=== PATIENT | male | born 1950 | race African-American/Black ===

== ENCOUNTER 2019-12-19 20:49 | Observation (INO) ==
[2019-12-19] MEDS ORDERED: NITROGLYCERIN 2% OINTMENT 30GM TUBE EXT STA (21:10)
[2019-12-19] MEDS ORDERED: ASPIRIN CHEW 324 MG PO STA (21:10)
--- NOTE | 2019-12-19 21:15 | Emergency Department Note ---
History of Present Illness General Chief complaint: Chest Pain Stated complaint: PAIN IN CHEST Time Seen by Provider: 12/19/19 21:01 Source: patient History of Present Illness Provider complaint: Chest pain Onset (ago): hour(s) Location: chest and right Radiation: non-radiation Severity: moderate Pain Consistency: + intermittent and + now resolved Quality: + sharp Exacerbated By: + none Associated symptoms: no cough, no diaphoresis, no fever/chills, no nausea/vomiting and no shortness of breath This is a 69-year-old male who presents with chest pain intermittently since this morning. He describes it as a sharp pain. It lasts about 1 second and is located in the right side of his chest. It is now gone. No modifying factors. No associated shortness of breath, diaphoresis, chest pressure or tightness or heaviness. He states that he was on a very long arduous bike ride yesterday at 6 PM but he did not have any chest pain at that time. He does state that he had similar chest pain years ago and had a unremarkable stress test at that time. He denies any fever, cough, abdominal pain, vomiting, diarrhea, leg swelling or pain or family history of CAD. He denies any known COVID-19 exposure. Home Medications Home Medications Medication Instructions Recorded Confirmed Type amlodipine 5 mg tablet 5 mg PO DAILY #90 tab 11/17/18 12/19/19 Rx aspirin 81 mg tablet,delayed 81 mg PO DAILY 11/17/18 12/19/19 History release hydrochlorothiazide 25 mg tablet 25 mg PO DAILY #90 tab 11/17/18 12/19/19 Rx atorvastatin 20 mg tablet 20 mg PO DAILY #30 tab 11/10/19 12/19/19 Rx sildenafil 100 mg PO DAILY PRN 12/19/19 12/19/19 History zolpidem 5 - 10 mg PO HS PRN 12/19/19 12/19/19 History Allergies Allergy/AdvReac Type Severity Reaction Status Date / Time No Known Allergies Allergy Verified 12/19/19 21:36 Past Med/Surg History Medical History Dyslipidemia Encounter for prostate cancer screening HTN (hypertension) Surgical History History of wisdom tooth extraction Family History Mother Myocardial infarction Coronary heart disease Social History Smoking Status: Never smoker Hx Alcohol Use: Yes Preferred Language: Bulgarian Hearing Ability: Hard of Hearing marital status: current occupational status: employed Feels Safe at Home: Yes Review of Systems See HPI for pertinent positives & negatives. and A total of 10 systems reviewed and were otherwise negative Physical Exam Vital Signs Vital Signs - 24 hr 12/19/19 20:56 12/19/19 21:04 12/19/19 21:30 Temperature 36.9 C Temperature Source Oral Pulse Rate 77 75 Pulse Rate [Apical] 81 Pulse Rate from SpO2 Sensor 73 Respiratory Rate 18 25 H 24 Respiratory Effort / Characteristics Non-Labored Spontaneous Non-Labored Spontaneous Respiratory Depth Normal Normal Respiratory Pattern Regular Blood Pressure 178/99 H 178/104 H Blood Pressure [Left Arm] 214/93 H Blood Pressure Mean 125 131 Blood Pressure Mean [Left Arm] 133 Pulse Oximetry 97 98 98 Oxygen Delivery Method Room Air Room Air Room Air Sepsis Recent Fever Within 48 Hours No Sepsis New/Unexplained Change in Mental Status N/A Sepsis Action Taken by Nursing No Action Required 12/19/19 22:00 12/19/19 22:30 12/19/19 23:00 Temperature Temperature Source Pulse Rate 84 87 77 Pulse Rate [Apical] Pulse Rate from SpO2 Sensor 78 84 77 Respiratory Rate 24 20 15 Respiratory Effort / Characteristics Respiratory Depth Respiratory Pattern Blood Pressure 175/102 H 178/96 H 181/105 H Blood Pressure [Left Arm] Blood Pressure Mean 116 124 128 Blood Pressure Mean [Left Arm] Pulse Oximetry 97 99 98 Oxygen Delivery Method Room Air Room Air Room Air Sepsis Recent Fever Within 48 Hours Sepsis New/Unexplained Change in Mental Status Sepsis Action Taken by Nursing 12/19/19 23:30 12/19/19 23:58 Temperature Temperature Source Pulse Rate 72 78 Pulse Rate [Apical] Pulse Rate from SpO2 Sensor 62 Respiratory Rate 29 H 18 Respiratory Effort / Characteristics Respiratory Depth Respiratory Pattern Blood Pressure 179/95 H 179/95 H Blood Pressure [Left Arm] Blood Pressure Mean 137 Blood Pressure Mean [Left Arm] Pulse Oximetry 98 95 Oxygen Delivery Method Room Air Sepsis Recent Fever Within 48 Hours Sepsis New/Unexplained Change in Mental Status Sepsis Action Taken by Nursing Constitutional: Vital signs reviewed. Eyes: Pupils are equal round reactive to light. Conjunctiva are noninjected. ENT: Pharynx is clear without erythema or exudate. Mucous membranes are moist. Neck supple without meningeal signs. Respiratory: Clear to auscultation bilaterally. Breath sounds are equal bilaterally. Cardiovascular: Regular rate and rhythm. No rubs or gallops. GI: Soft, nondistended and nontender. Bowel sounds are present. Musculoskeletal: No peripheral edema. No lower extremity tenderness. Integumentary: No cyanosis. or jaundice. Neurological: The patient is awake and alert. No focal deficits. Psychiatric: Normal affect. Not anxious appearing. Course Administered Medications Heparin Sodium/Dextrose (Heparin Sodium/Dextrose) 25,000 units in 500 mls @ 30 mls/hr IV .[id number] [facility]; Protocol Stop: 01/18/20 22:59 Last Admin: 12/19/19 23:00 Dose: 1,500 units/hr, 30 mls/hr Documented by: [id number] Cosigned by: [id number] Discontinued Medications Aspirin (Aspirin Chew 324 Mg) 324 mg PO NOW STA Stop: 12/19/19 21:11 Last Admin: 12/19/19 21:15 Dose: 324 mg Documented by: [id number] Heparin Sodium (Porcine) (Heparin Sod (Porcine) 1000 Unit/Ml 10 Ml Vial) Confirm Administered Dose 10,000 units .ROUTE .K-MED ONE Stop: 12/19/19 22:43 Last Admin: 12/19/19 22:56 Dose: Not Given Documented by: [id number] Heparin Sodium/Dextrose (Heparin Iv Low Dose With Bolus) 1 ea IV NOW STA; Protocol Stop: 12/19/19 22:28 Last Admin: 12/19/19 22:56 Dose: Not Given Documented by: [id number] Heparin Sodium/Dextrose (Heparin Sodium/Dextrose) 25,000 units in 500 mls @ 0.02 mls/hr IV .Q24H [facility]; Protocol Stop: 01/18/20 22:29 Last Admin: 12/19/19 22:56 Dose: Not Given Documented by: [id number] Potassium Chloride (K Ever / Wtr) 10 meq in 100 mls @ 100 mls/hr IV ONE ONE Stop: 12/19/19 23:26 Last Admin: 12/19/19 23:01 Dose: 100 mls/hr Documented by: [id number] Nitroglycerin (Nitroglycerin 2% Ointment 30gm Tube) 1 inch EXT NOW STA Stop: 12/19/19 21:11 Last Admin: 12/19/19 21:17 Dose: 1 inch Documented by: [id number] Potassium Chloride (Potassium Chloride 10 Meq Tabcr) 40 meq PO NOW STA Stop: 12/19/19 22:28 Last Admin: 12/19/19 23:04 Dose: 40 meq Documented by: [id number] Critical Care Time Critical Care Time: Yes Total Critical Care Time: 35 I have personally spent approximately 35 minutes of critical care time in the direct management of this patient. This includes bedside care, interpretation of diagnostic studies, and testing, discussion with consultants, patient, and family members, and other required patient management activities. These minutes are in excess of all separately billable procedures. Medical Decision Making Differential Diagnosis Unstable angina, pleurisy, OK, pericarditis, GERD Medical Records Attestation: I reviewed the patient's medical records. I did perform a limited focused review of portions of the patient's old chart on the electronic medical record. 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 José earlier this months or LVH, hypertension and diastolic dysfunction. Home Medications Current Medication List: was personally reviewed by me Laboratory Data Attestation: I reviewed the patient's lab results. Result diagrams: 12/19/19 21:10 12/19/19 21:10 Lab Results 12/19/19 12/19/19 12/19/19 Range/Units 21:10 21:10 21:10 WBC 7.69 (4.8-10.8) K/uL RBC 5.31 (4.7-6.1) M/uL Hgb 15.4 (14.0-18.0) g/dL Hct 44.8 (42-52) % MCV 84.4 (80-100) fL MCH 29.0 (25-34) pg MCHC 34.4 (32-36) g/dL RDW Std Deviation 42.1 (36.4-46.3) fL RDW Coeff of Azam 13.6 (11.5-14.5) % Plt Count 183 (130-400) K/uL MPV 12.2 H (7.4-10.4) fL Neutrophils % (Manual) 27.6 % Lymphocytes % (Manual) 36.2 % Monocytes % (Manual) 11.2 % Neutrophils # (Manual) 2.12 (1.4-6.5) K/uL Total Absolute Neuts 2.12 (1.4-6.5) K/uL Lymphocytes # (Manual) 2.78 (1.2-3.4) K/uL Total Abs Lymphocytes 4.71 H (1.2-3.4) K/uL Monocytes # (Manual) 0.86 H (0.11-0.59) K/uL Large Granular Lymphs 25.0 % # Lrg Granular Lymphs 1.92 K/uL Toxic Vacuolation 1+ Poikilocytosis Present PT 11.3 (9.0-12.0) Seconds INR 1.1 (0.9-1.1) APTT 24.7 (21.0-31.0) Seconds PTT Ratio 0.9 Sodium 138 (136-145) mmol/L Potassium 2.7 L (3.5-5.1) mmol/L Chloride 104 (98-107) mmol/L Carbon Dioxide 28 (21-32) mmol/L Anion Gap 7.0 (3-11) BUN 18 (7-18) mg/dl Creatinine 1.26 (0.6-1.4) mg/dl Est Cr Clr Drug Dosing 65.0 ml/min Est GFR ( Amer) 67.5 Est GFR (Non-Af Amer) 58.2 BUN/Creatinine Ratio 14.2 (10-20) Glucose 127 H (70-99) mg/dl Calcium 9.9 (8.5-10.1) mg/dl Magnesium (1.8-2.4) mg/dl Total Bilirubin 1.2 H (0.2-1) mg/dl AST 42 H (15-37) U/L ALT 70 (12-78) U/L Alkaline Phosphatase 68 (45-117) U/L Total Creatine Kinase 390 H (39-308) U/L CK-MB (CK-2) 3.5 (0.5-3.6) ng/ml CK/CKMB % Calc 0.9 (0-3.0) Troponin I 0.270 H* (0-0.045) ng/ml Total Protein 9.0 H (6.4-8.2) gm/dl Albumin 4.1 (3.4-5.0) gm/dl Globulin 4.9 H (2.5-4.0) gm/dl Albumin/Globulin Ratio 0.8 L (0.9-2) Lyme Disease IgG Ab (Negative) Lyme Disease IgM Ab (Negative) 12/19/19 12/19/19 Range/Units 21:10 21:10 WBC (4.8-10.8) K/uL RBC (4.7-6.1) M/uL Hgb (14.0-18.0) g/dL Hct (42-52) % MCV (80-100) fL MCH (25-34) pg MCHC (32-36) g/dL RDW Std Deviation (36.4-46.3) fL RDW Coeff of Azam (11.5-14.5) % Plt Count (130-400) K/uL MPV (7.4-10.4) fL Neutrophils % (Manual) % Lymphocytes % (Manual) % Monocytes % (Manual) % Neutrophils # (Manual) (1.4-6.5) K/uL Total Absolute Neuts (1.4-6.5) K/uL Lymphocytes # (Manual) (1.2-3.4) K/uL Total Abs Lymphocytes (1.2-3.4) K/uL Monocytes # (Manual) (0.11-0.59) K/uL Large Granular Lymphs % # Lrg Granular Lymphs K/uL Toxic Vacuolation Poikilocytosis PT (9.0-12.0) Seconds INR (0.9-1.1) APTT (21.0-31.0) Seconds PTT Ratio Sodium (136-145) mmol/L Potassium (3.5-5.1) mmol/L Chloride (98-107) mmol/L Carbon Dioxide (21-32) mmol/L Anion Gap (3-11) BUN (7-18) mg/dl Creatinine (0.6-1.4) mg/dl Est Cr Clr Drug Dosing ml/min Est GFR ( Amer) Est GFR (Non-Af Amer) BUN/Creatinine Ratio (10-20) Glucose (70-99) mg/dl Calcium (8.5-10.1) mg/dl Magnesium 2.2 (1.8-2.4) mg/dl Total Bilirubin (0.2-1) mg/dl AST (15-37) U/L ALT (12-78) U/L Alkaline Phosphatase (45-117) U/L Total Creatine Kinase (39-308) U/L CK-MB (CK-2) (0.5-3.6) ng/ml CK/CKMB % Calc (0-3.0) Troponin I (0-0.045) ng/ml Total Protein (6.4-8.2) gm/dl Albumin (3.4-5.0) gm/dl Globulin (2.5-4.0) gm/dl Albumin/Globulin Ratio (0.9-2) Lyme Disease IgG Ab Negative (Negative) Lyme Disease IgM Ab Negative (Negative) Imaging Data Attestation: I personally reviewed and interpreted this imaging study as follows: My Impression: Chest x-ray per my interpretation shows no acute cardiopulmonary process. ECG Data Attestation: I personally reviewed and interpreted this ECG as follows: Indication: + chest pain Rate (beats per minute): 80 Rhythm: + normal sinus ECG Intervals/blocks: + First degree AV block ECG ST segments: + ST depression (Inferior laterally) ECG Findings: + PVCs Comparison ECG Date: from (December 16, 2009) Change: the following changes noted (ST depressions are new. PVCs are new. First-degree AV block is old.) Additional Comments: Repeat EKG per my interpretation performed at 2125 demonstrates sinus rhythm with a first-degree AV block. The [place] interval is prolonged. There are no PVCs. There are persistent ST depressions in leads V4 to V6. No ST elevations. MDM Narrative I did evaluate the patient as noted above. The patient is presenting with intermittent chest pain since this morning. He describes it as very transient sharp pain in the right chest without any associated symptoms. He is currently chest pain-free. I did treat him with aspirin p.o. He was also given nitroglycerin paste 1 inch to the anterior chest wall as he is very hypertensive. He did take his blood pressure medications this morning and states he is just nervous about being here. IV access was established. I did place an order for continuous cardiac monitoring. The monitor showed normal sinus rhythm at a rate of 80 bpm. I did order and personally review the patient's 12-lead EKG as described above. He has a first-degree AV block with PVCs and ST depressions in the precordial leads. Also lead aVF as well. Leads I, II and III are difficult to see due to the PVC. A repeat EKG was performed which showed a first-degree AV block with a prolonged [place] interval and ST depressions in leads V4 to V6. He is not currently having any chest discomfort. I did order and personally reviewed the images of the patient's chest x-ray as described above. There is no evidence of acute cardiopulmonary process. I did order and review the patient's blood work as noted in the electronic medical record. CBC is unremarkable without leukocytosis or anemia. Electrolytes are concerning for a potassium of 2.7. His troponin is also elevated at 0.27. Because of his prolonged [place] interval and first-degree AV block I did order a Lyme test which was negative. I did reassess the patient. He is not having any chest pain at this time. He does state that he has been having some twinges of pain that only last about a second and go away. He is not currently having any pain. He was concerned maybe his troponin may be elevated due to the bike ride. I did state that this was unlikely especially given he has been having chest pain and has an abnormal EKG. I did order, however, a CK and CK-MB which showed that his CK-MB was not elevated but his CK was very minimally elevated at 390. I did discuss risks and benefits of IV heparin with him. He was started on a heparin drip with bolus. His blood pressure did improve. I did not give him any beta-blockers because he has a very long [place] interval. He was given IV KCl as well as oral potassium. I did discuss the case with Dr. Dunn of cardiology who agreed with my management. I did discuss the case with the hospitalist and immigration case manager and he was admitted to the hospital. Impression & Plan Non-STEMI (non-ST elevated myocardial infarction), Acute hypokalemia, First degree heart block Discharge Plan Visit Data Chief Complaint: Chest Pain Stated Complaint: PAIN IN CHEST ED Provider: Michael Pak Discharge Problem: Non-STEMI (non-ST elevated myocardial infarction), Acute hypokalemia, First degree heart block Discharge Instructions Interventions: ED Discharge Assessment Last Done: 12/19/19 23:58 Forms Stand Alone Forms: My [employer] Prescriptions Prescriptions: No Action atorvastatin 20 mg tablet 20 mg PO DAILY Qty: 30 RF: 1 aspirin [Adult Low Dose Aspirin] 81 mg tablet,delayed release (DR/EC) 81 mg PO DAILY RF: 0 amlodipine 5 mg tablet 5 mg PO DAILY Qty: 90 RF: 3 hydrochlorothiazide 25 mg tablet 25 mg PO DAILY Qty: 90 RF: 3 sildenafil 100 mg tablet 100 mg PO DAILY PRN (Reason: Sexual Activity) RF: 0 zolpidem 10 mg tablet 5 - 10 mg PO HS PRN (Reason: Insomnia) RF: 0 Referrals Referrals: Jaylan Haley III, MD [Primary Care Provider] -
[2019-12-19 21:21] LABS: Hematocrit (blood only) 44.8 % (42-52); Hemoglobin 15.4 g/dL (14.0-18.0); Mean Corpuscular Hgb Conc 34.4 g/dL (32-36); Mean Corpuscular Volume 84.4 fL (80-100); Mean Platelet Volume 12.2 fL (7.4-10.4); Platelet Count 183 K/uL (130-400); RDW Coefficient of Variation 13.6 % (11.5-14.5); RDW Standard Deviation 42.1 fL (36.4-46.3); Red Blood Count 5.31 M/uL (4.7-6.1); White Blood Count 7.69 K/uL (4.8-10.8)
[2019-12-19 21:33] LABS: INR 1.1 (0.9-1.1); Partial Thromboplastin Ratio 0.9; Partial Thromboplastin Time 24.7 Seconds (21.0-31.0); Prothrombin Time 11.3 Seconds (9.0-12.0)
[2019-12-19 21:39] LABS: Albumin Level 4.1 gm/dl (3.4-5.0); BUN Creatinine Ratio 14.2 (10-20); Calcium 9.9 mg/dl (8.5-10.1); Est GFR (African American) 67.5; Est GFR (Non-African American) 58.2; Potassium 2.7 mmol/L (3.5-5.1)
[2019-12-19 22:04] LABS: Albumin Globulin Ratio 0.8 (0.9-2); Bilirubin,Total 1.2 mg/dl (0.2-1); Globulin 4.9 gm/dl (2.5-4.0); Troponin I 0.27 ng/ml (0-0.045)
[2019-12-19 22:17] LABS: ALC (manual) 4.71 K/uL (1.2-3.4); ANC (manual) 2.12 K/uL (1.4-6.5); Large Granular Lymph # (manua 1.92 K/uL; Lymphocytes # (manual) 2.78 K/uL (1.2-3.4); Lymphocytes % (manual) 36.2 %; Monocytes # (manual) 0.86 K/uL (0.11-0.59); Monocytes % (manual) 11.2 %; Neutrophils # (manual) 2.12 K/uL (1.4-6.5); Neutrophils % (manual) 27.6 %; Poikilocytosis Present; Toxic Vacuolation 1+
[2019-12-19 22:23] LABS: Lyme Ab IgG w/WB Rflx Negative (Negative); Lyme Ab IgM w/WB Rflx Negative (Negative)
[2019-12-19] MEDS ORDERED: POTASSIUM CHLORIDE 10 MEQ TABCR PO STA (22:27)
[2019-12-19] MEDS ORDERED: Heparin IV Low Dose WITH Bolus IV STA (22:27)
[2019-12-19] MEDS ORDERED: POTASSIUM CHLORIDE / WTR 10 MEQ/100 ML PLCT IV ONE (22:27)
[2019-12-19] MEDS ORDERED: HEPARIN SODIUM/DEXTROSE 25,000 UNITS/500 ML BAG IV SCH ×2 (22:30→23:00)
[2019-12-19] MEDS ORDERED: HEPARIN SOD (PORCINE) 1000 UNIT/ML 10 ML VIAL ONE (22:42)
[2019-12-19] MEDS ORDERED: Heparin IV Standard *NO* Bolus IV ONE (22:49)
[2019-12-19 23:23] LABS: Creatine Kinase MB 3.5 ng/ml (0.5-3.6)
[2019-12-20] MEDS ORDERED: NSS + 20MEQ KCL 20 MEQ/1,000 ML BAG IV SCH (00:20)
[2019-12-20] MEDS ORDERED: MoRPHine SULFATE 2 MG/ML CARP IV PRN (00:20)
[2019-12-20] MEDS ORDERED: ONDANSETRON INJ 2 MG/ML 2 ML VIAL IV PRN (00:20)
[2019-12-20] MEDS ORDERED: MAGNESIUM HYDROXIDE SUSP 30 ML UDC PO PRN (00:20)
[2019-12-20] MEDS ORDERED: ZOLPIDEM TARTRATE 5 MG TAB PO PRN (00:20)
[2019-12-20] MEDS ORDERED: ALUMINUM/MAGNESIUM SUSP 30 ML UDC PO PRN (00:20)
[2019-12-20] MEDS ORDERED: ACETAMINOPHEN 325 MG TAB PO PRN (00:20)
[2019-12-20] MEDS ORDERED: PNEUMOCOCCAL POLYSACCHARIDES 25 MCG/0.5 ML VIAL/SYR IM ONE (00:34)
[2019-12-20] MEDS ORDERED: PNEUMOCOCCAL ADMINISTRATION CHARGE ONE (00:34)
[2019-12-20 01:56] LABS: Basophils # (auto) 0.02 K/uL (0-0.2); Basophils % (auto) 0.4 %; Eosinophils # (auto) 0.01 K/uL (0-0.5); Eosinophils % (auto) 0.2 %; Hematocrit (blood only) 42.1 % (42-52); Hemoglobin 14.2 g/dL (14.0-18.0); Lymphocytes # (auto) 1.79 K/uL (1.2-3.4); Lymphocytes % (auto) 35.6 %; Mean Corpuscular Hemoglobin 28.2 pg (25-34); Mean Corpuscular Hgb Conc 33.7 g/dL (32-36); Mean Corpuscular Volume 83.7 fL (80-100); Mean Platelet Volume 12.3 fL (7.4-10.4); Monocytes # (auto) 0.35 K/uL (0.11-0.59); Neutrophils # (auto) 2.86 K/uL (1.4-6.5); Neutrophils % (auto) 56.8 %; Platelet Count 165 K/uL (130-400); RDW Coefficient of Variation 13.6 % (11.5-14.5); RDW Standard Deviation 41.2 fL (36.4-46.3); Red Blood Count 5.03 M/uL (4.7-6.1); White Blood Count 5.03 K/uL (4.8-10.8)
[2019-12-20 02:08] LABS: INR 1.1 (0.9-1.1); Partial Thromboplastin Ratio 1.5; Partial Thromboplastin Time 43.2 Seconds (21.0-31.0); Prothrombin Time 11.3 Seconds (9.0-12.0)
[2019-12-20 02:17] LABS: Albumin Level 3.6 gm/dl (3.4-5.0); BUN Creatinine Ratio 14.3 (10-20); Calcium 8.9 mg/dl (8.5-10.1); Creatinine Clr Calc Pharmacy 74.8 ml/min; Est GFR (African American) 79.5; Est GFR (Non-African American) 68.6; Magnesium 2.1 mg/dl (1.8-2.4); Potassium 3.5 mmol/L (3.5-5.1)
[2019-12-20 02:19] LABS: Albumin Globulin Ratio 0.8 (0.9-2); Globulin 4.3 gm/dl (2.5-4.0); Total Protein 7.9 gm/dl (6.4-8.2)
--- NOTE | 2019-12-20 02:48 | History & Physical Report ---
Date of Service December 20, 2019 The patient was seen and examined on 12/19/2019 Assessment & Plan (1) Non-STEMI (non-ST elevated myocardial infarction): Non-STEMI/hypertension/abnormal EKG- The patient will be admitted to telemetry for serial cardiac enzymes, serial EKG's, cardiac rhythm monitoring and a 2-D echocardiogram with Dopplers. Continue aspirin 81 mg daily, amlodipine 5 mg daily. Do not add beta-rowdy due to bradycardia. 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 José Present on Admission?: Yes (2) Acute hypokalemia: Hold HCTZ. Given 40 mEq orally and a K rider by the ED. Placed on NSS + KCl 20 mEq at 80 mils per hour Repeat laboratories in a.m. Present on Admission?: Yes (3) HTN (hypertension): See above Present on Admission?: Yes (4) Dyslipidemia: Will increase atorvastatin from 20 mg to 40 mg daily. Check a fasting lipid panel Present on Admission?: Yes (5) LVH (left ventricular hypertrophy): Repeat echocardiogram Present on Admission?: Yes (6) Diastolic dysfunction: Repeat echocardiogram Present on Admission?: Yes (7) Insomnia: Continue zolpidem 5 mg p.o. at bedtime as needed Present on Admission?: Yes Admission and Anticipated Discharge Date Admission Date: December 19, 2019 History of Present Illness Chief Complaint: The patient presents to the emergency department with complaint of chest pain on and off throughout the day, but is presently resolved Primary Care Provider: Jaylan Haley MD The patient is a 69-year-old male with a past medical history including first- degree heart block, hypertension, dyslipidemia, LVH, atypical chest pain, diastolic dysfunction, hearing difficulty, mitral insufficiency, vision problem and knee pain. He reports that he was out for a 19 mile bike ride yesterday, which is not unusual for him, and this morning awoke with intermittent right- sided sharp chest pain, duration about 1 second, and felt a strong impact at those times as well. He denies any recent sick exposures, including to COVID. He reports a similar type episode that occurred 1 year ago, and he was evaluated with a negative work-up. In the ED today, patient's troponin is elevated at 0.270, and potassium is 2.7. EKG shows ST depressions in leads V4, V5 and V6. Allergies Allergy/AdvReac Type Severity Reaction Status Date / Time No Known Allergies Allergy Verified 12/19/19 21:36 Home Medications Home Medications Medication Instructions Recorded Confirmed Type amlodipine 5 mg tablet 5 mg PO DAILY #90 tab 11/17/18 12/19/19 Rx aspirin 81 mg tablet,delayed 81 mg PO DAILY 11/17/18 12/19/19 History release hydrochlorothiazide 25 mg tablet 25 mg PO DAILY #90 tab 11/17/18 12/19/19 Rx atorvastatin 20 mg tablet 20 mg PO DAILY #30 tab 11/10/19 12/19/19 Rx sildenafil 100 mg PO DAILY PRN 12/19/19 12/19/19 History zolpidem 5 - 10 mg PO HS PRN 12/19/19 12/19/19 History Past Med/Surg History Medical History Dyslipidemia Encounter for prostate cancer screening HTN (hypertension) Surgical History History of wisdom tooth extraction Family History Mother Myocardial infarction Coronary heart disease Social History Smoking Status: Never smoker Hx Alcohol Use: Yes Hx Substance Use: No Preferred Language: Wolof Communication Ability: Effective Hearing Ability: Hard of Hearing Beliefs That Will Affect Care: None marital status: Current Living Situation: Alone current occupational status: employed Other Information That Helps Us Care for You: No Feels Safe at Home: Yes Assistive Devices: Glasses and Hearing Aid - Left Review of Systems Review of Systems: The patient denies shortness of breath, dyspnea on exertion, cough, lower extremity swelling, sore throat, fevers, chills, sweats, fatigue,nausea, vomiting, diarrhea , constipation, abdominal pain, pelvic pain, blood in urine or stool, dysuria, urinary frequency or urgency, lightheadedness, dizziness, headache, memory loss, loss of consciousness, rash, abnormal bruising or bleeding, imbalance, focal or generalized weakness, numbness or tingling in arms or legs, generalized arthralgias or myalgias, back or neck pain, or night sweats. The review of systems is otherwise negative other than for that already noted above, and at least 10 systems have been reviewed. Physical Exam Physical Exam: The patient is awake, alert and oriented 3, well developed and well nourished, normocephalic and atraumatic, sitting upright in bed and in no acute distress. HEENT--PERRL, EOMI, mucous membranes and oropharynx normal. Neck--supple. No JVD. No bruits. Thyroid normal, trachea midline, no adenopathy. Heart--normal S1 and S2. No murmurs, rubs or gallops. Lungs--clear bilaterally, no respiratory distress, no accessory muscle use. Abdomen--normal bowel sounds and soft. Nontender. Nondistended. Extremities--no cyanosis or clubbing. No edema. Dermatologic--normal skin turgor, normal color, no abnormal lymph nodes, no rash. Neurologic--cranial nerves II through XII grossly intact. Rheumatologic--normal range of motion. Psychiatric--normal affect. Results & Data Results & Data ([facility]) Vital Signs (Past 12 Hours) Vital Signs Temp Pulse Pulse Resp BP BP Pulse Ox 12/20/19 02:01 73 12/20/19 00:21 98.8 F 78 151/95 H 97 12/19/19 23:58 78 18 179/95 H 95 12/19/19 23:30 72 29 H 179/95 H 98 12/19/19 23:00 77 15 181/105 H 98 12/19/19 22:30 87 20 178/96 H 99 12/19/19 22:00 84 24 175/102 H 97 12/19/19 21:30 75 24 178/104 H 98 12/19/19 21:04 81 25 H 214/93 H 98 12/19/19 20:56 98.4 F 77 18 178/99 H 97 Laboratory Results Laboratory Results WBC 5.03 K/uL (4.8-10.8) 12/20/19 01:39 RBC 5.03 M/uL (4.7-6.1) 12/20/19 01:39 Hgb 14.2 g/dL (14.0-18.0) 12/20/19 01:39 Hct 42.1 % (42-52) 12/20/19 01:39 MCV 83.7 fL (80-100) 12/20/19 01:39 MCH 28.2 pg (25-34) 12/20/19 01:39 MCHC 33.7 g/dL (32-36) 12/20/19 01:39 RDW Std Deviation 41.2 fL (36.4-46.3) 12/20/19 01:39 RDW Coeff of Azam 13.6 % (11.5-14.5) 12/20/19 01:39 Plt Count 165 K/uL (130-400) 12/20/19 01:39 MPV 12.3 fL (7.4-10.4) H 12/20/19 01:39 Immature Gran % (Auto) 0.0 % 12/20/19 01:39 Neut % (Auto) 56.8 % 12/20/19 01:39 Lymph % (Auto) 35.6 % 12/20/19 01:39 Kaufman % (Auto) 7.0 % 12/20/19 01:39 Eos % (Auto) 0.2 % 12/20/19 01:39 Baso % (Auto) 0.4 % 12/20/19 01:39 Neut # (Auto) 2.86 K/uL (1.4-6.5) 12/20/19 01:39 Lymph # (Auto) 1.79 K/uL (1.2-3.4) 12/20/19 01:39 Kaufman # (Auto) 0.35 K/uL (0.11-0.59) 12/20/19 01:39 Eos # (Auto) 0.01 K/uL (0-0.5) 12/20/19 01:39 Baso # (Auto) 0.02 K/uL (0-0.2) 12/20/19 01:39 Immature Gran # (Auto) 0.00 K/uL (0.00-0.02) 12/20/19 01:39 Neutrophils % (Manual) 27.6 % 12/19/19 21:10 Lymphocytes % (Manual) 36.2 % 12/19/19 21:10 Monocytes % (Manual) 11.2 % 12/19/19 21:10 Neutrophils # (Manual) 2.12 K/uL (1.4-6.5) 12/19/19 21:10 Total Absolute Neuts 2.12 K/uL (1.4-6.5) 12/19/19 21:10 Lymphocytes # (Manual) 2.78 K/uL (1.2-3.4) 12/19/19 21:10 Total Abs Lymphocytes 4.71 K/uL (1.2-3.4) H 12/19/19 21:10 Monocytes # (Manual) 0.86 K/uL (0.11-0.59) H 12/19/19 21:10 Large Granular Lymphs 25.0 % 12/19/19 21:10 # Lrg Granular Lymphs 1.92 K/uL 12/19/19 21:10 Toxic Vacuolation 1+ 12/19/19 21:10 Poikilocytosis Present 12/19/19 21:10 PT 11.3 Seconds (9.0-12.0) 12/20/19 01:39 INR 1.1 (0.9-1.1) 12/20/19 01:39 APTT 43.2 Seconds (21.0-31.0) H 12/20/19 01:39 PTT Ratio 1.5 12/20/19 01:39 Sodium 141 mmol/L (136-145) 12/20/19 01:39 Potassium 3.5 mmol/L (3.5-5.1) D 12/20/19 01:39 Chloride 107 mmol/L (98-107) 12/20/19 01:39 Carbon Dioxide 30 mmol/L (21-32) 12/20/19 01:39 Anion Gap 4.0 (3-11) 12/20/19 01:39 BUN 16 mg/dl (7-18) 12/20/19 01:39 Creatinine 1.10 mg/dl (0.6-1.4) 12/20/19 01:39 Est Cr Clr Drug Dosing 74.8 ml/min 12/20/19 01:39 Est GFR ( Amer) 79.5 12/20/19 01:39 Est GFR (Non-Af Amer) 68.6 12/20/19 01:39 BUN/Creatinine Ratio 14.3 (10-20) 12/20/19 01:39 Glucose 118 mg/dl (70-99) H 12/20/19 01:39 Calcium 8.9 mg/dl (8.5-10.1) 12/20/19 01:39 Magnesium 2.1 mg/dl (1.8-2.4) 12/20/19 01:39 Total Bilirubin 1.0 mg/dl (0.2-1) 12/20/19 01:39 AST 37 U/L (15-37) 12/20/19 01:39 ALT 60 U/L (12-78) 12/20/19 01:39 Alkaline Phosphatase 65 U/L (45-117) 12/20/19 01:39 Total Creatine Kinase 390 U/L (39-308) H 12/19/19 21:10 CK-MB (CK-2) 3.5 ng/ml (0.5-3.6) 12/19/19 21:10 CK/CKMB % Calc 0.9 (0-3.0) 12/19/19 21:10 Troponin I 0.249 ng/ml (0-0.045) H* 12/20/19 01:39 Total Protein 7.9 gm/dl (6.4-8.2) 12/20/19 01:39 Albumin 3.6 gm/dl (3.4-5.0) 12/20/19 01:39 Globulin 4.3 gm/dl (2.5-4.0) H 12/20/19 01:39 Albumin/Globulin Ratio 0.8 (0.9-2) L 12/20/19 01:39 Lyme Disease IgG Ab Negative (Negative) 12/19/19 21:10 Lyme Disease IgM Ab Negative (Negative) 12/19/19 21:10 Code Status & VTE Plan Code Status Full code VTE Prophylaxis Plan VTE Prophylaxis will be ordered: Yes PG Care Time/CCT Total # of Minutes Spent Total Time Spent with Patient: Total time spent is greater than 50% in coordination of care (as documented) at patient's floor/unit and/or counseling patient: Coding Level of Care Code 52755 Initial Inpt Care Lvl 3 Diagnoses Non-STEMI (non-ST elevated myocardial infarction) I21.4 Acute hypokalemia E87.6 HTN (hypertension) I10 Dyslipidemia E78.5 LVH (left ventricular hypertrophy) I51.7 Diastolic dysfunction I51.89 Insomnia G47.00
[2019-12-20] MEDS: NITROGLYCERIN 2% OINTMENT 30GM TUBE EXT SCH ×3 (03:06→11:31)
[2019-12-20 05:34] LABS: Partial Thromboplastin Ratio 2.6
[2019-12-20 05:50] LABS: Partial Thromboplastin Time 73.7 Seconds (21.0-31.0)
--- NOTE | 2019-12-20 07:57 | XRay Report ---
XR chest 1V portable CLINICAL HISTORY: Atypical chest pain COMPARISON STUDY: No previous studies for comparison. FINDINGS: The heart is normal in size. There are increased markings within the left midlung zone poss ibly related to technical factors although a true airspace opacity cannot be excluded. If the patient remains symptomatic, a PA and lateral study is recommended in follow-up. There are no significant pl eural effusions[ IMPRESSION: 1. Hazy increased density of the left midlung zone, possibly related to technical factors. If symptom s persist, a follow-up PA and lateral study is recommended. ACT 112: Negative or not required by law. Electronically signed by: Phill Lopes M.D. 12/20/2019 7:56 AM
[2019-12-20] MEDS ORDERED: AMLODIPINE BESYLATE 5 MG TAB PO SCH ×2 (09:00→10:00)
[2019-12-20] MEDS ORDERED: ASPIRIN 81 MG ECTAB PO SCH (09:00)
[2019-12-20] MEDS ORDERED: ATORVASTATIN 40 MG TAB PO SCH ×2 (09:00→10:00)
--- NOTE | 2019-12-20 09:06 | XCELERA ---
[id number]
--- NOTE | 2019-12-20 09:07 | Cardiology Consultation ---
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 Patient is active on a daily basis, and took his usual bike ride of approximately 19 miles on 12/18/2019 -- which included a long uphill segment -- without any limiting cardiopulmonary symptoms. His HR during his bike ride ranged from 120 to 156 bpm. On the morning of 12/19/2019 he began to experience intermittent and very brief episodes of a sharp right sided chest pain, which seemed to come and go at random, were not exertional, did not radiate, and were without any associated symptoms. He specifically denies any associated nausea, vomiting, diaphoresis, or dyspnea. Episodes only last for a second or 2. -- SBP's ranging between 150 to 214 mmHg. He demonstrates a 1st degree AVB with periods of Mobitz type I 2nd degree AV block (Wenckebach) on telemetry. -- His initial Troponin I was 0.270 and has trended down to 0.249 ng/ml. -- He was markedly hypokalemic on admission with a serum K of 2.7 mmol/L - this has been corrected. -- Initial EKG shows sinus rhythm with a marked 1st degree AV block with PVC's, inferolateral ST depression. -- Today's EKG 12/20/2019 shows NSR with marked 1st degree AVB, inferolateral ST depressions have resolved. -- He demonstrates a 1st degree AVB with periods of Mobitz type I 2nd degree AV block (Wenckebach) on telemetry. We suspect that his EKG changes and elevated Troponin I levels are second to LVH / sub-endocardial ischemia in the presence of ongoing hypertension. However we would like to rule out myocardial ischemia with a stress echocardiogram. Recommend the following: -- Increase Amlodipine to 10 mg daily. -- Increase Atorvastatin to 80 mg daily. -- Continue Aspirin 81 mg daily. -- Stop Hydrochlorothiazide. -- Begin Triamterene-Hydrochlorothiazide 37.5-25 mg daily to improve BP and hopefully lessen the risk of hypokalemia. -- Stop Heparin. (2) LVH (left ventricular hypertrophy): -- Improve BP control. -- Increase CCB and convert from Hydrochlorothiazide to Triamterene- Hydrochlorothiazide. -- Low sodium diet. (3) HTN (hypertension): -- Increase CCB and convert from Hydrochlorothiazide to Triamterene-Hydrochloro thiazide 37.5-25 mg daily. -- Low sodium diet. (4) Dyslipidemia: -- Increase Atorvastatin from 20 mg daily to 80 mg daily. -- Consider adding Repatha depending on future fasting lipid panel. (5) First degree heart block: -- Avoid negative chronotropic medications. (6) Acute hypokalemia: -- His serum K+ level is corrected. -- Convert from Hydrochlorothiazide to Triamterene-Hydrochlorothiazide. -- Follow-up with [facility] Cardiology 1 to 2 weeks after discharge for re-evaluation of BP, recheck BMP at that time. History of Present Illness Reason for Consultation: -- Elevated Troponin I. -- Right sided, sharp chest pain. 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 Patient is active on a daily basis, and took his usual bike ride of approximately 19 miles on 12/18/2019 -- which included a long uphill segment. His HR during his ride ranged from 120 to 156 bpm and he had no symptoms whatsoever -- exercise tolerance and stamina were at baseline. On the morning of 12/19/2019 he began to experience intermittent and very brief episodes of a sharp right sided chest pain, which seemed to come and go at random, were not exertional, did not radiate, and were without any associated symptoms. He specifically denies any associated nausea, vomiting, diaphoresis, or dyspnea. Episodes only last for a second or 2. Patient has been hypertensive throughout this hospitalization with SBP's ranging between 150 to 214 mmHg. He demonstrates a 1st degree AVB with periods of Mobitz type I 2nd degree AV block (Wenckebach). His initial Troponin I was 0.270 and has trended down to 0.249 ng/ml. He was markedly hypokalemic on admission with a serum K of 2.7 mmol/L. This has been corrected. Initial EKG shows sinus rhythm with a marked 1st degree AV block with PVC's, inferolateral ST depression. Most recent EKG 12/20/2019 shows NSR with marked 1st degree AVB, inferolateral ST depressions have resolved. Allergies Allergy/AdvReac Type Severity Reaction Status Date / Time No Known Allergies Allergy Verified 12/19/19 21:36 Home Medications Home Medications Medication Instructions Recorded Confirmed Type amlodipine 5 mg tablet 5 mg PO DAILY #90 tab 11/17/18 12/19/19 Rx aspirin 81 mg tablet,delayed 81 mg PO DAILY 11/17/18 12/19/19 History release hydrochlorothiazide 25 mg tablet 25 mg PO DAILY #90 tab 11/17/18 12/19/19 Rx atorvastatin 20 mg tablet 20 mg PO DAILY #30 tab 11/10/19 12/19/19 Rx sildenafil 100 mg PO DAILY PRN 12/19/19 12/19/19 History zolpidem 5 - 10 mg PO HS PRN 12/19/19 12/19/19 History Patient History Medical History (Updated 12/20/19 @ 04:29 by Yosef Trinidad MD) Dyslipidemia Encounter for prostate cancer screening HTN (hypertension) Insomnia Surgical History History of wisdom tooth extraction Family History Mother Myocardial infarction Coronary heart disease Social History Smoking Status: Never smoker Hx Alcohol Use: Yes Hx Substance Use: No Preferred Language: Iraqi Communication Ability: Effective Hearing Ability: Hard of Hearing Beliefs That Will Affect Care: None marital status: Current Living Situation: Alone current occupational status: employed Other Information That Helps Us Care for You: No Feels Safe at Home: Yes Assistive Devices: Glasses and Hearing Aid - Left Physical Exam Physical Exam: GENERAL: Patient in no acute distress. HEENT: Head is atraumatic, normocephalic. EOM's intact. Facies symmetric. No perioral cyanosis. NECK: No JVD. JVP is at the level of the clavicle sitting upright. Carotid upstrokes are + 2 bilaterally. No bruits are noted. CHEST/LUNGS: Clear to auscultation throughout all lung rendon. No wheezes, rales, or crackles. CVS: S1 and S2 are regular without murmurs, gallops, or rubs. PMI is nondisplaced. No lifts, heaves, or thrills. No abdominal aortic or renal bruits. ABDOMINAL EXAM: Bowel sounds are present. No masses, organomegaly, or tenderness. EXTREMITIES: No clubbing or cyanosis. No edema. Intact posterior tibial and radial pulses bilaterally. NEUROLOGIC EXAM: Patient is awake, alert, and oriented. Pleasant and cooperative. Answers questions appropriately. Speech is clear. Normal movement in all 4 extremities. Gait pattern is unremarkable. ECHOCARDIOGRAM 12/20/2019: -- Normal LV systolic function. -- LVEF 60% to 65%, No RWMA's. -- Mild concentric LVH. -- No significant valvular abnormalities. STRESS ECHOCARDIOGRAM is pending. Results & Data ([facility]) Vital Signs (Past 12 Hours) Vital Signs Temp Pulse Pulse Pulse Resp BP BP 12/20/19 08:13 36.7 C 65 18 154/92 H 12/20/19 03:32 36.6 C 57 L 20 156/90 H 12/20/19 02:01 73 12/20/19 00:21 37.1 C 78 151/95 H 12/19/19 23:58 78 18 179/95 H 12/19/19 23:30 72 29 H 179/95 H 12/19/19 23:00 77 15 181/105 H 12/19/19 22:30 87 20 178/96 H 12/19/19 22:00 84 24 175/102 H 12/19/19 21:30 75 24 178/104 H Pulse Ox 12/20/19 08:13 97 12/20/19 03:32 96 12/20/19 02:01 12/20/19 00:21 97 12/19/19 23:58 95 12/19/19 23:30 98 12/19/19 23:00 98 12/19/19 22:30 99 12/19/19 22:00 97 12/19/19 21:30 98 Laboratory Results Laboratory Results - last 24 hr 12/19/19 12/19/19 12/19/19 21:10 21:10 21:10 WBC 7.69 RBC 5.31 Hgb 15.4 Hct 44.8 MCV 84.4 MCH 29.0 MCHC 34.4 RDW Std Deviation 42.1 RDW Coeff of Azam 13.6 Plt Count 183 MPV 12.2 H Immature Gran % (Auto) Neut % (Auto) Lymph % (Auto) Mclean % (Auto) Eos % (Auto) Baso % (Auto) Neut # (Auto) Lymph # (Auto) Mclean # (Auto) Eos # (Auto) Baso # (Auto) Immature Gran # (Auto) Neutrophils % (Manual) 27.6 Lymphocytes % (Manual) 36.2 Monocytes % (Manual) 11.2 Neutrophils # (Manual) 2.12 Total Absolute Neuts 2.12 Lymphocytes # (Manual) 2.78 Total Abs Lymphocytes 4.71 H Monocytes # (Manual) 0.86 H Large Granular Lymphs 25.0 # Lrg Granular Lymphs 1.92 Blood Smear Review Pending Toxic Vacuolation 1+ Poikilocytosis Present PT 11.3 INR 1.1 APTT 24.7 PTT Ratio 0.9 Sodium 138 Potassium 2.7 L Chloride 104 Carbon Dioxide 28 Anion Gap 7.0 BUN 18 Creatinine 1.26 Est Cr Clr Drug Dosing 65.0 Est GFR ( Amer) 67.5 Est GFR (Non-Af Amer) 58.2 BUN/Creatinine Ratio 14.2 Glucose 127 H Calcium 9.9 Magnesium Total Bilirubin 1.2 H AST 42 H ALT 70 Alkaline Phosphatase 68 Total Creatine Kinase 390 H CK-MB (CK-2) 3.5 CK/CKMB % Calc 0.9 Troponin I 0.270 H* Total Protein 9.0 H Albumin 4.1 Globulin 4.9 H Albumin/Globulin Ratio 0.8 L Lyme Disease IgG Ab Lyme Disease IgM Ab 12/19/19 12/19/19 12/20/19 21:10 21:10 01:39 WBC 5.03 RBC 5.03 Hgb 14.2 Hct 42.1 MCV 83.7 MCH 28.2 MCHC 33.7 RDW Std Deviation 41.2 RDW Coeff of Azam 13.6 Plt Count 165 MPV 12.3 H Immature Gran % (Auto) 0.0 Neut % (Auto) 56.8 Lymph % (Auto) 35.6 Mclean % (Auto) 7.0 Eos % (Auto) 0.2 Baso % (Auto) 0.4 Neut # (Auto) 2.86 Lymph # (Auto) 1.79 Mclean # (Auto) 0.35 Eos # (Auto) 0.01 Baso # (Auto) 0.02 Immature Gran # (Auto) 0.00 Neutrophils % (Manual) Lymphocytes % (Manual) Monocytes % (Manual) Neutrophils # (Manual) Total Absolute Neuts Lymphocytes # (Manual) Total Abs Lymphocytes Monocytes # (Manual) Large Granular Lymphs # Lrg Granular Lymphs Blood Smear Review Toxic Vacuolation Poikilocytosis PT INR APTT PTT Ratio Sodium Potassium Chloride Carbon Dioxide Anion Gap BUN Creatinine Est Cr Clr Drug Dosing Est GFR ( Amer) Est GFR (Non-Af Amer) BUN/Creatinine Ratio Glucose Calcium Magnesium 2.2 Total Bilirubin AST ALT Alkaline Phosphatase Total Creatine Kinase CK-MB (CK-2) CK/CKMB % Calc Troponin I Total Protein Albumin Globulin Albumin/Globulin Ratio Lyme Disease IgG Ab Negative Lyme Disease IgM Ab Negative 12/20/19 12/20/19 12/20/19 01:39 01:39 01:39 WBC RBC Hgb Hct MCV MCH MCHC RDW Std Deviation RDW Coeff of Azam Plt Count MPV Immature Gran % (Auto) Neut % (Auto) Lymph % (Auto) Mclean % (Auto) Eos % (Auto) Baso % (Auto) Neut # (Auto) Lymph # (Auto) Mclean # (Auto) Eos # (Auto) Baso # (Auto) Immature Gran # (Auto) Neutrophils % (Manual) Lymphocytes % (Manual) Monocytes % (Manual) Neutrophils # (Manual) Total Absolute Neuts Lymphocytes # (Manual) Total Abs Lymphocytes Monocytes # (Manual) Large Granular Lymphs # Lrg Granular Lymphs Blood Smear Review Toxic Vacuolation Poikilocytosis PT 11.3 INR 1.1 APTT 43.2 H PTT Ratio 1.5 Sodium 141 Potassium 3.5 D Chloride 107 Carbon Dioxide 30 Anion Gap 4.0 BUN 16 Creatinine 1.10 Est Cr Clr Drug Dosing 74.8 Est GFR ( Amer) 79.5 Est GFR (Non-Af Amer) 68.6 BUN/Creatinine Ratio 14.3 Glucose 118 H Calcium 8.9 Magnesium 2.1 Total Bilirubin 1.0 AST 37 ALT 60 Alkaline Phosphatase 65 Total Creatine Kinase CK-MB (CK-2) CK/CKMB % Calc Troponin I 0.249 H* Total Protein 7.9 Albumin 3.6 Globulin 4.3 H Albumin/Globulin Ratio 0.8 L Lyme Disease IgG Ab Lyme Disease IgM Ab 12/20/19 04:57 WBC RBC Hgb Hct MCV MCH MCHC RDW Std Deviation RDW Coeff of Azam Plt Count MPV Immature Gran % (Auto) Neut % (Auto) Lymph % (Auto) Mclean % (Auto) Eos % (Auto) Baso % (Auto) Neut # (Auto) Lymph # (Auto) Mclean # (Auto) Eos # (Auto) Baso # (Auto) Immature Gran # (Auto) Neutrophils % (Manual) Lymphocytes % (Manual) Monocytes % (Manual) Neutrophils # (Manual) Total Absolute Neuts Lymphocytes # (Manual) Total Abs Lymphocytes Monocytes # (Manual) Large Granular Lymphs # Lrg Granular Lymphs Blood Smear Review Toxic Vacuolation Poikilocytosis PT INR APTT 73.7 H* PTT Ratio 2.6 Sodium Potassium Chloride Carbon Dioxide Anion Gap BUN Creatinine Est Cr Clr Drug Dosing Est GFR ( Amer) Est GFR (Non-Af Amer) BUN/Creatinine Ratio Glucose Calcium Magnesium Total Bilirubin AST ALT Alkaline Phosphatase Total Creatine Kinase CK-MB (CK-2) CK/CKMB % Calc Troponin I Total Protein Albumin Globulin Albumin/Globulin Ratio Lyme Disease IgG Ab Lyme Disease IgM Ab Medications Administered Active Medications Generic Name Dose Route Start Last Admin Trade Name Freq PRN Reason Stop Dose Admin Acetaminophen 650 mg 12/20/19 00:20 12/20/19 03:05 Acetaminophen 325 Mg Tab PO 01/19/20 00:19 650 mg Q4H PRN Administration Pain or Fever Al Hydrox/Mg Hydrox/Simethicone 15 ml 12/20/19 00:20 Aluminum/Magnesium Susp 30 Ml Udc PO 01/19/20 00:19 Q4H PRN Dyspepsia Amlodipine Besylate 10 mg 12/20/19 10:00 Amlodipine Besylate 5 Mg Tab PO 01/19/20 09:59 DAILY RIC Aspirin 81 mg 12/20/19 09:00 Aspirin 81 Mg Ectab PO 01/19/20 08:59 DAILY RIC Atorvastatin Calcium 80 mg 12/20/19 10:00 Atorvastatin 40 Mg Tab PO 01/19/20 09:59 DAILY RIC Heparin Sodium/Dextrose 25,000 units in 500 mls @ 28 mls/hr 12/19/19 23:00 12/20/19 07:07 Heparin Sodium/Dextrose IV 01/18/20 22:59 1,400 units/hr .[id number] RIC 28 mls/hr Titration Protocol 1,400 UNITS/HR Potassium Chloride/Sodium Chloride 20 meq in 1,000 mls @ 80 mls/hr 12/20/19 00:20 12/20/19 02:59 Normal Saline W/20 Meq Kcl IV 01/19/20 00:19 80 mls/hr .[id number] RIC Administration Influenza Virus Vaccine 0.5 ml 12/22/19 09:00 Influenza Vaccine High Dose 65+ 0.5 Ml Syr IM 12/22/19 09:01 .ONCE ONE Magnesium Hydroxide 30 ml 12/20/19 00:20 Magnesium Hydroxide Susp 30 Ml Udc PO 01/19/20 00:19 Q12H PRN Constipation Morphine Sulfate 2 mg 12/20/19 00:20 Morphine Sulfate 2 Mg/Ml Carp IV 01/03/20 00:19 Q30M PRN Chest Pain Nitroglycerin 2 inch 12/20/19 00:20 12/20/19 08:46 Nitroglycerin 2% Ointment 30gm Tube EXT 01/19/20 00:19 Not Given Q6 RIC Ondansetron HCl 4 mg 12/20/19 00:20 Ondansetron Inj 2 Mg/Ml 2 Ml Vial IV 01/19/20 00:19 Q6H PRN Nausea Zolpidem Tartrate 5 mg 12/20/19 00:20 Zolpidem Tartrate 5 Mg Tab PO 01/19/20 00:19 HS PRN Insomnia PG Care Time/CCT Total # of Minutes Spent Total Time Spent with Patient: Total time spent is greater than 50% in c oordination of care (as documented) at patient's floor/unit and/or counseling patient: Coding Level of Care Code 39385 Initial Inpt Care Lvl 3 Diagnoses Atypical chest pain R07.89 LVH (left ventricular hypertrophy) I51.7 HTN (hypertension) I10 Dyslipidemia E78.5 First degree heart block I44.0 Acute hypokalemia E87.6 Time Spent (min) 50
--- NOTE | 2019-12-20 11:16 | XCELERA ---
[id number]
--- NOTE | 2019-12-20 11:57 | XRay Report ---
XR chest 2V PA/lateral CLINICAL HISTORY: left midlung opacity f/u COMPARISON STUDY: Chest radiographs December 19, 2019 and December 16, 2009. FINDINGS: Lung volumes are normal. There is no pneumothorax or pleural effusion. There is no consolid ation or evidence for pulmonary edema. Cardiomediastinal silhouette is stable. Apparent hazy left mid lung opacity shown on prior exam is not evident on this exam. This was technical. IMPRESSION: No acute cardiopulmonary findings. Apparent hazy left midlung opacity on portable chest radiograph of December 19, 2019 not visualized. This was technical. ACT 112: Negative or not required by law. Electronically signed by: Flavio Everett M.D. 12/20/2019 11:55 AM
[2019-12-20 12:04] LABS: Partial Thromboplastin Time 55.5 Seconds (21.0-31.0)
[2019-12-20] MEDS ORDERED: TRIAMTERENE/HCTZ 37.5/25MG CAP PO SCH (12:30)
--- NOTE | 2019-12-20 12:36 | Discharge Summary ---
Date of Service December 20, 2019 Admission HPI Per Admitting Provider The patient is a 69-year-old male with a past medical history including first- degree heart block, hypertension, dyslipidemia, LVH, atypical chest pain, diastolic dysfunction, hearing difficulty, mitral insufficiency, vision problem and knee pain. He reports that he was out for a 19 mile bike ride yesterday, which is not unusual for him, and this morning awoke with intermittent right- sided sharp chest pain, duration about 1 second, and felt a strong impact at those times as well. He denies any recent sick exposures, including to COVID. He reports a similar type episode that occurred 1 year ago, and he was evaluated with a negative work-up. In the ED today, patient's troponin is elevated at 0.270, and potassium is 2.7. EKG shows ST depressions in leads V4, V5 and V6. Discharge Data Allergies Allergy/AdvReac Type Severity Reaction Status Date / Time No Known Allergies Allergy Verified 12/19/19 21:36 Consultations 12/19/19 22:27 ED Decision to Admit Stat 12/20/19 00:20 Consult Cardiology Routine Consult Case Management - Discharge Planning Routine Hospital Course (1) Non-STEMI (non-ST elevated myocardial infarction): Non-STEMI/hypertension/abnormal EKG- The patient will be admitted to telemetry for serial cardiac enzymes, serial EKG's, cardiac rhythm monitoring and a 2-D echocardiogram with Dopplers. Continue aspirin 81 mg daily, amlodipine 5 mg daily. Do not add beta-rowdy due to bradycardia. Started on Nitropaste 1 inch in the ED, and will increase to 2 inches to anterior chest wall every 6 hours Placed on heparin drip, standard protocol without bolus Consult his porter head Dr. José (2) Acute hypokalemia: Hold HCTZ. Given 40 mEq orally and a K rider by the ED. Placed on NSS + KCl 20 mEq at 80 mils per hour Repeat laboratories in a.m. (3) HTN (hypertension): See above (4) Dyslipidemia: Will increase atorvastatin from 20 mg to 40 mg daily. Check a fasting lipid panel (5) LVH (left ventricular hypertrophy): Repeat echocardiogram (6) Diastolic dysfunction: Repeat echocardiogram (7) Insomnia: Continue zolpidem 5 mg p.o. at bedtime as needed Discharge Plan Discharge Items Patient Disposition: Home - Self-Care Reason For Visit: NONSTEMI, HYPOKALEMIA Discharge Diagnosis: Atypical chest pain Hypokalemia Condition on Discharge: Good Activity: As commented below Lifting: Gradually increase as tolerated Bathing: No limitations Exercise/Sports: Gradually increase as tolerated Driving/Machine Use: No limitations Non-emergency contact: Primary Care Provider Call non-emergency contact if: you have any medication questions, your symptoms worsen, your pain is not controlled, your pain is worsening, your pain is unusual for you, your pain is concerning for you and you have a fever Follow-up/Referrals: Jaylan Haley III, MD [Primary Care Provider] - Diet: Heart Healthy Ambulatory Orders: Basic Metabolic Panel (Routine) Timeframe: 1 Week Location: Determined by Patient Ordered By: Judi Chang Attending Provider Instructions: You were admitted for right sided chest pain which may be from a muscle spasm from low potassium levels. Your blood pressure medication was changed to help better control your blood pressure and raise your potassium. Please have your PCP check your potassium level within 1 week. Your amlodipine dose was increased to 10mg daily and your atorvastatin dose was increased to 80mg daily. Follow up with your PCP within 1 week. Pending Studies at Discharge: No Stand-Alone Forms: [facility] Medications and DC Order Prescriptions: New amlodipine 10 mg tablet 10 mg PO DAILY Qty: 30 RF: 0 atorvastatin 80 mg tablet 80 mg PO DAILY Qty: 30 RF: 0 triamterene-hydrochlorothiazid 37.5-25 mg Capsule 1 cap PO QAM Qty: 30 RF: 0 Continued aspirin [Adult Low Dose Aspirin] 81 mg tablet,delayed release (DR/EC) 81 mg PO DAILY RF: 0 sildenafil 100 mg tablet 100 mg PO DAILY PRN (Reason: Sexual Activity) RF: 0 zolpidem 10 mg tablet 5 - 10 mg PO HS PRN (Reason: Insomnia) RF: 0 Discontinued atorvastatin 20 mg tablet 20 mg PO DAILY Qty: 30 RF: 1 amlodipine 5 mg tablet 5 mg PO DAILY Qty: 90 RF: 3 hydrochlorothiazide 25 mg tablet 25 mg PO DAILY Qty: 90 RF: 3 Discharge Orders: Discharge Order (Routine); Ordered 12/20/19 Ordered By: Judi Tucker Admission Data Admit Date/Time: 12/19/19 23:29 Attending Provider: Judi Tucker Admit Provider: Yosef Trinidad Primary Care Provider: Jaylan Haley III Other Providers: Yosef Trinidad ; Yehuda José Coding Diagnoses Non-STEMI (non-ST elevated myocardial infarction) I21.4 Acute hypokalemia E87.6 HTN (hypertension) I10 Dyslipidemia E78.5 LVH (left ventricular hypertrophy) I51.7 Diastolic dysfunction I51.89 Insomnia G47.00
--- NOTE | 2019-12-20 16:53 | Electrocardiogram Report ---
Test Reason : Blood Pressure : / mmHG Vent. Rate : 080 BPM Atrial Rate : 081 BPM P-R Int : 370 ms QRS Dur : 106 ms QT Int : 354 ms P-R-T Axes : 072 024 023 degrees QTc Int : 408 ms Sinus rhythm with long 1st degree AV block Premature ventricular complexes Nonspecific ST abnormality Abnormal ECG Confirmed by Faisal Dunn ([id number]) on 12/20/2019 4:52:52 PM Referred By: REFERRED SELF Confirmed By:Mathew Dunn
--- NOTE | 2019-12-20 16:53 | Electrocardiogram Report ---
Test Reason : Blood Pressure : / mmHG Vent. Rate : 080 BPM Atrial Rate : 078 BPM P-R Int : 000 ms QRS Dur : 104 ms QT Int : 494 ms P-R-T Axes : 000 007 034 degrees QTc Int : 569 ms Sinus rhythm with long 1st degree AV block Nonspecific ST abnormality Prolonged QT Abnormal ECG When compared with ECG of 19-DEC-2019 21:04, (unconfirmed) QT has lengthened Confirmed by Faisal Dunn ([id number]) on 12/20/2019 4:53:45 PM Referred By: REFERRED SELF Confirmed By:Mathew Dunn
--- NOTE | 2019-12-20 16:56 | Electrocardiogram Report ---
Test Reason : Blood Pressure : / mmHG Vent. Rate : 058 BPM Atrial Rate : 072 BPM P-R Int : 000 ms QRS Dur : 100 ms QT Int : 412 ms P-R-T Axes : 102 170 146 degrees QTc Int : 404 ms Suspect arm lead reversal, interpretation assumes no reversal Sinus rhythm with 2nd degree A-V block (Mobitz I) Right axis deviation Nonspecific ST and T wave abnormality Abnormal ECG When compared with ECG of 19-DEC-2019 21:26, (unconfirmed) There is now Mobitz 1 conduction QRS axis Shifted right ST no longer depressed in Lateral leads QT has shortened Confirmed by Faisal Dunn ([id number]) on 12/20/2019 4:56:35 PM Referred By: REFERRED SELF Confirmed By:Mathew Dunn
--- NOTE | 2019-12-20 16:57 | Electrocardiogram Report ---
Test Reason : Blood Pressure : / mmHG Vent. Rate : 077 BPM Atrial Rate : 000 BPM P-R Int : 000 ms QRS Dur : 102 ms QT Int : 396 ms P-R-T Axes : 000 013 038 degrees QTc Int : 448 ms Sinus rhythm with long 1st degree AV block Minimal voltage criteria for LVH, may be normal variant ( Gregory product ) Abnormal ECG When compared with ECG of 20-DEC-2019 03:35, (unconfirmed) QRS axis Shifted left Confirmed by Faisal Dunn ([id number]) on 12/20/2019 4:57:13 PM Referred By: REFERRED SELF Confirmed By:Mathew Dunn
[2019-12-22] MEDS ORDERED: INFLUENZA ADMINISTRATION CHARGE ONE (09:00)
[2019-12-22] MEDS ORDERED: INFLUENZA VACCINE HIGH DOSE 65+ 0.5 ML SYR IM ONE (09:00)
== END 2019-12-20 13:49 | disposition home or self-care (01) ==
LOC: ED 20:49 → 2S 23:29 → INTOOBSV 23:29 → SUATTDRO 23:29 → 2S 23:58
DX: Z79.899 Other long term (current) drug therapy; R07.89 Other chest pain; E78.5 Hyperlipidemia, unspecified; I11.9 Hypertensive heart disease without heart failure; Z82.49 Family history of ischemic heart disease and other diseases of the circulatory system; E87.6 Hypokalemia; G47.00 Insomnia, unspecified; I44.0 Atrioventricular block, first degree; Z79.82 Long term (current) use of aspirin; I51.7 Cardiomegaly

== ENCOUNTER 2023-09-20 17:05 | Inpatient (IN) ==
--- NOTE | 2023-09-20 17:36 | Emergency Department Note ---
Impression & Plan Second-degree heart block, Elevated troponin, Acute kidney injury ED Provider Note NAME: PIERRE VAZQUEZ AGE: 72 SEX: M : 1950 ARRIVES VIA: Walk-In INFORMANT: Patient, prior records, triage note ED PROVIDER(S): Rock Barry MD CHIEF COMPLAINT: Fatigability, outpatient referral MEDICAL DECISION MAKING: Patient presents as a referral for fatigability and possible A-fib. Reviewing the patient's outpatient EKGs do believe the patient has second-degree heart block. IV was established and blood work was obtained. Additional EKGs ordered which showed likely second-degree heart block. Patient's blood work shows a normal white count H&H and platelet count the patient's kidney function is unremarkable. Creatinine 1.4. Initial troponin of 211. The patient without chest pain or shortness of breath. Labs negative. Patient does have some lateral depressions but no ST elevations. I did reevaluate the patient informed of the findings. Patient is still without any chest pains or shortness of breath. Patient is comfortable plan of care. I did speak to the on-call hospital service Dr. Rodríguez and the patient was admitted to the medicine service. Discussion w/ other healthcare providers: Dr. Rodríguez inpatient medicine service Prior /Outside records reviewed: I reviewed a primary care visit from Dr. Oden from July 28, 2023 and the patient is on bisoprolol. Differential diagnosis: Benign positional vertigo, dehydration, hypovolemia, anemia, infection, hypoglycemia, electrolyte abnormalities, arrhythmia, tox among others were considered. Diagnostics, as interpreted by me: ECG: Sinus bradycardia with, ventricular rate of 41 with PAC with nonconducted ventricular complex in a pattern of bigeminy. ST depressions in the lateral leads. Repeat EKG interpreted by myself Sinus bradycardia with second-degree AV block PACs, QRS normal with normal axis. ST depressions in the lateral leads. Cardiac monitoring: An order was placed for continuous cardiac monitoring. The monitor shows a rate of 45 with bradycardic rhythm. Patient was placed on pulse oximetry Medical decision rules: None Imaging studies: I informally interpreted the patient's chest x-ray does not show obvious pneumonia or pneumothorax with formal report to follow. HPI: Patient presents as a referral for possible A-fib. Patient denies any chest pains or shortness of breath but states that he did present to urgent care earlier today due to concern for increasing fatigability. The patient states that he did go out for 12 mile bike ride about 1 week ago and states that he seemed to notice a change in his ability to complete his physical activity. Patient states that he is quite avid bike rider. Patient states that he has been going to [employer] [place] later this month for the [employer]. The patient also states that he does check his blood pressure very routinely and had taken himself off his amlodipine but noticed 3 days ago his blood pressure was in the 180s so began taking it again. Patient denies any alcohol tobacco or drug use. The patient denies any palpitations but feels as though he has had an irregular heartbeat. Patient states that he did have a recent PCP follow-up and did follow-up with Dr. José most recently in January. PAST MEDICAL HISTORY: See Below PAST SURGICAL HISTORY: See Below SOCIAL HISTORY: See Below HOME MEDICATIONS: See Below ALLERGIES: See Below VITALS: See Below PHYSICAL EXAMINATION: GENERAL: NAD, non-toxic. Wearing glasses. EYE EXAM: Normal conjunctiva. PERRL, no anisocoria and EOM's grossly intact w/o pain. OROPHARYNX: Moist mucus membranes, grossly normal dentition. NECK: Trachea midline, no stridor. LUNGS: Clear to auscultation. Normal chest wall mechanics. HEART: NSR, no MRG. ABDOMEN: Abdomen soft, non-tender, no masses, no rebound or guarding. BACK: No CVA TTP. SKIN: No rashes and no bruising. UPPER EXTREMITIES: Upper extremities are grossly normal. LOWER EXTREMITIES: Grossly normal, no edema. NEURO EXAM: A&O x3, cranial nerves II-XII grossly intact, normal speech, moves all 4 extremities. Past Med/Surg History Problem List Elevated troponin I level Prediabetes Hyperlipidemia Acute kidney injury (Acute) Elevated troponin (Acute) Second-degree heart block (Acute) Type II diabetes mellitus Hypertriglyceridemia PVC (premature ventricular contraction) Vision problem Mitral insufficiency LVH (left ventricular hypertrophy) (12/20/19) Seen on echocardiogram, mild concentric LVH, LVEF 60-65% without wall motion abnormalities Hearing difficulty Diastolic dysfunction First degree heart block (Acute) Erectile dysfunction Insomnia HTN (hypertension) Dyslipidemia Medical History Mitral insufficiency LVH (left ventricular hypertrophy) follows with Dr. José GERD (gastroesophageal reflux disease) Hearing deficit left [facility] Surgical History History of tonsillectomy History of colonoscopy History of wisdom tooth extraction Family History Mother Coronary heart disease Myocardial infarction Other No family history of adverse response to anesthesia Social History Smoking Status: Never smoker Second Hand Exposure: No; Do You Dip or Chew Tobacco: No; Hx Alcohol Use: Yes Alcohol type: beer, wine and hard liquor Hx Substance Use: No Preferred Language: German Communication Ability: Effective Hearing Ability: Hard of Hearing Lifestyle Block Farmer Required: No Beliefs That Will Affect Care: None marital status: Single Current Living Situation: Alone current occupational status: employed Feels Safe at Home: Yes Childhood Exposure to Second-Hand Smoke: No Diet Comment: No red meat over 50 years caffeine: Yes Dental Care, Regularly: Yes Physical Activity Frequency: 3-4 Times per Week Physical Activity Frequency Comment: Cyclist Seatbelt Use: always Sunscreen Use: Yes Assistive Devices: Glasses Allergies Allergies Allergy/AdvReac Type Severity Reaction Status Date / Time No Known Allergies Allergy Verified 07/28/23 09:14 Home Meds Home Medications Medication Instructions Recorded Confirmed aspirin 81 mg tablet,delayed 81 mg PO QAM 11/17/18 09/20/23 release (Adult Low Dose Aspirin) calcium carbonate (Tums) 300 mg PO TID PRN gerd 05/16/21 09/20/23 Previous Rx's Medication Instructions Recorded sildenafil 100 mg tablet 100 mg PO DAILY PRN Sexual 02/24/23 Activity #10 tabs amlodipine 10 mg tablet 10 mg PO QAM #90 tabs 05/14/23 bisoprolol fumarate 5 mg tablet 2.5 mg (1/2 x 5 mg) PO DAILY 90 06/18/23 days #45 tabs atorvastatin 80 mg tablet 80 mg PO QPM #90 tabs 07/22/23 triamterene 37.5 1 cap PO QAM #90 caps 08/12/23 mg-hydrochlorothiazide 25 mg capsule blood-glucose sensor (FreeStyle #1 ea 09/15/23 Deb 3 Sensor device) zolpidem 10 mg tablet 5 - 10 mg (0.5 - 1 x 10 mg) PO HS 09/15/23 PRN Insomnia #90 tabs Results & Data (ED) Vital Signs Vital Signs - 24 hr 09/20/23 17:07 09/20/23 17:29 09/20/23 17:30 Temperature 36.5 C Temperature Source Temporal Artery Scan Pulse Rate 53 L 45 L Pulse Rate [Apical] Pulse Rate from SpO2 Sensor 45 L Respiratory Rate 20 13 Blood Pressure 167/81 H 187/80 H Blood Pressure [Right Arm] Blood Pressure Mean 109 122 Blood Pressure Mean [Right Arm] Pulse Oximetry 96 99 Oxygen Delivery Method Room Air Sepsis Recent Fever Within 48 Hours No Sepsis New/Unexplained Change in Mental Status N/A Sepsis Action Taken by Nursing No Action Required 09/20/23 17:38 09/20/23 18:00 09/20/23 18:03 Temperature Temperature Source Pulse Rate 40 L 51 L 47 L Pulse Rate [Apical] Pulse Rate from SpO2 Sensor Respiratory Rate 24 21 Blood Pressure Blood Pressure [Right Arm] Blood Pressure Mean Blood Pressure Mean [Right Arm] Pulse Oximetry Oxygen Delivery Method Sepsis Recent Fever Within 48 Hours Sepsis New/Unexplained Change in Mental Status Sepsis Action Taken by Nursing 09/20/23 18:10 09/20/23 18:39 09/20/23 18:39 Temperature Temperature Source Pulse Rate Pulse Rate [Apical] 57 L Pulse Rate from SpO2 Sensor Respiratory Rate 22 Blood Pressure 153/88 H Blood Pressure [Right Arm] 153/88 H Blood Pressure Mean 96 Blood Pressure Mean [Right Arm] 109 Pulse Oximetry 98 Oxygen Delivery Method Room Air Room Air Sepsis Recent Fever Within 48 Hours Sepsis New/Unexplained Change in Mental Status Sepsis Action Taken by Nursing 09/20/23 18:39 Temperature Temperature Source Pulse Rate Pulse Rate [Apical] Pulse Rate from SpO2 Sensor Respiratory Rate Blood Pressure Blood Pressure [Right Arm] Blood Pressure Mean Blood Pressure Mean [Right Arm] Pulse Oximetry Oxygen Delivery Method Room Air Sepsis Recent Fever Within 48 Hours Sepsis New/Unexplained Change in Mental Status Sepsis Action Taken by Long-Term Medications Current Medication List: was personally reviewed by me Laboratory Data Attestation: I reviewed the patient's lab results. 09/20/23 17:30 09/21/23 03:54 Lab Results 09/20/23 09/20/23 Range/Units 17:30 18:59 WBC 6.43 (4.8-10.8) K/ul RBC 5.29 (4.70-6.10) M/uL Hgb 14.6 (14.0-18.0) g/dl Hct 45.4 (42.0-52.0) % MCV 85.8 (80.0-100.0) fL MCH 27.6 (25.0-34.0) pg MCHC 32.2 (32.0-36.0) g/dL RDW Std Deviation 41.2 (36.4-46.3) fL RDW Coeff of Azam 13.1 (11.5-14.5) % Plt Count 159 (130-400) K/uL MPV 13.0 H (9.4-12.4) fL Immature Gran % (Auto) 0.2 % Neut % (Auto) 44.4 % Lymph % (Auto) 45.1 % [place] % (Auto) 8.9 % Eos % (Auto) 0.9 % Baso % (Auto) 0.5 % Neut # (Auto) 2.86 (1.40-6.50) K/uL Lymph # (Auto) 2.90 (1.20-3.40) K/uL [place] # (Auto) 0.57 (0.11-0.59) K/uL Eos # (Auto) 0.06 (0.00-0.50) K/uL Baso # (Auto) 0.03 (0.00-0.20) K/uL Immature Gran # (Auto) 0.01 (0.01-0.20) K/uL PT 10.8 (9.0-12.0) Seconds INR 1.0 (0.9-1.1) APTT 23 (21-31) Seconds PTT Ratio 0.9 Sodium 136 (136-145) mmol/L Potassium TNP 3.6 Chloride 100 (98-107) mmol/L Carbon Dioxide 26 (21-32) mmol/L Anion Gap 10 (3-11) BUN 23 (6-23) mg/dl Creatinine 1.44 H (0.6-1.4) mg/dl Est Cr Clr Drug Dosing 52.8 ml/min Est GFR ( Amer) 56.2 ml/min Est GFR (Non-Af Amer) 48.5 ml/min BUN/Creatinine Ratio 16.0 (10-20) Glucose 139 H (70-99(Fasting)) mg/dl Calcium 10.3 (8.6-10.3) mg/dl Total Bilirubin 1.1 H (0.2-1.0) mg/dl AST TNP 34 ALT 39 (7-52) U/L Alkaline Phosphatase 52 (34-104) U/L Troponin I High Sens 211.4 H* (0-20) pg/ml Total Protein 9.4 H (6.0-8.3) gm/dl Albumin 4.9 (3.4-5.0) gm/dl Globulin 4.5 H (2.5-4.0) gm/dl Albumin/Globulin Ratio 1.1 (0.9-2) Lyme Disease Screen Negative (Negative) Administered Medications Amlodipine Besylate (Amlodipine Besylate 5 Mg Tab) 10 mg PO QAM [facility] Stop: 10/21/23 08:59 Last Admin: 09/21/23 13:08 Dose: 10 mg Documented By: Aspirin (Aspirin 81 Mg Ectab) 81 mg PO QAM [facility] Stop: 10/21/23 08:59 Last Admin: 09/21/23 13:08 Dose: 81 mg Documented By: Atorvastatin Calcium (Atorvastatin 40 Mg Tab) 80 mg PO QPM [facility] Stop: 10/20/23 21:22 Last Admin: 09/20/23 22:10 Dose: 80 mg Documented By: CHRISTIE Enoxaparin Sodium (Enoxaparin 100 Mg/1ml Syr) 90 mg SQ Q12H [facility] Stop: 10/21/23 07:44 Last Admin: 09/21/23 09:12 Dose: 90 mg Documented By: Sodium Chloride (Nss) 1,000 mls @ 100 mls/hr IV .Q10H [facility] Stop: 10/20/23 21:22 Last Admin: 09/21/23 09:00 Dose: 100 mls/hr Documented By: Infusion: 09/21/23 08:36 Dose: Infused Documented By: Admin: 09/20/23 22:10 Dose: 100 mls/hr Documented By: KRT Discontinued Medications Sodium Chloride (Nss) 500 mls @ 999 mls/hr IV .Q31M [facility] Stop: 09/20/23 18:00 Last Infusion: 09/20/23 20:54 Dose: Infused Documented By: Admin: 09/20/23 18:19 Dose: 999 mls/hr Documented By: ERIC Potassium Chloride (Potassium Chloride Crtab 20 Meq Tabcr) 40 meq PO NOW STA Stop: 09/21/23 13:13 Last Admin: 09/21/23 13:39 Dose: Not Given Documented By: ENS Imaging Data Radiologist's Impression: Chest X-Ray 09/20/23 17:30 XR chest 1V portable CLINICAL HISTORY: fatigue TECHNIQUE: Single frontal radiograph of the chest was obtained. Comparison: Comparison is made to chest radiograph 12/20/2019 FINDINGS: No lines and tubes are seen. The cardiomediastinal silhouette is normal. The lungs are clear. No evidence of pleural effusion or pneumothorax. IMPRESSION: No acute chest disease. ACT 112: Negative or not required by law. Electronically signed by: Robson Rizo M.D. 09/20/2023 6:20 PM Discharge Plan Visit Data Chief Complaint: Arrhythmia/Palpitations Stated Complaint: AFIB - REFERRAL FROM [facility] ED Provider: Rock Barry Discharge Problem: Second-degree heart block, Elevated troponin, Acute kidney injury Patient Disposition: Admitted As Inpatient Discharge Instructions Interventions: ED Discharge Assessment Last Done: 09/20/23 20:48
[2023-09-20 17:46] LABS: Basophils # (auto) 0.03 K/uL (0.00-0.20); Basophils % (auto) 0.5 %; Eosinophils # (auto) 0.06 K/uL (0.00-0.50); Eosinophils % (auto) 0.9 %; Hematocrit (blood only) 45.4 % (42.0-52.0); Hemoglobin 14.6 g/dl (14.0-18.0); Immature Granulocytes # (auto) 0.01 K/uL (0.01-0.20); Immature Granulocytes % (auto) 0.2 %; Lymphocytes % (auto) 45.1 %; Mean Corpuscular Hemoglobin 27.6 pg (25.0-34.0); Mean Corpuscular Hgb Conc 32.2 g/dL (32.0-36.0); Mean Corpuscular Volume 85.8 fL (80.0-100.0); Monocytes # (auto) 0.57 K/uL (0.11-0.59); Monocytes % (auto) 8.9 %; Neutrophils # (auto) 2.86 K/uL (1.40-6.50); Neutrophils % (auto) 44.4 %; Platelet Count 159 K/uL (130-400); RDW Coefficient of Variation 13.1 % (11.5-14.5); RDW Standard Deviation 41.2 fL (36.4-46.3); Red Blood Count 5.29 M/uL (4.70-6.10); White Blood Count 6.43 K/ul (4.8-10.8)
[2023-09-20 18:10] LABS: Alanine Aminotransferase 39 U/L (7-52); Albumin Globulin Ratio 1.1 (0.9-2); Albumin Level 4.9 gm/dl (3.4-5.0); Alkaline Phosphatase 52 U/L (34-104); Anion Gap 10 (3-11); Bilirubin,Total 1.1 mg/dl (0.2-1.0); Blood Urea Nitrogen 23 mg/dl (6-23); Calcium 10.3 mg/dl (8.6-10.3); Carbon Dioxide 26 mmol/L (21-32); Chloride 100 mmol/L (98-107); Creatinine Clr Calc Pharmacy 52.8 ml/min; Est GFR (African American) 56.2 ml/min; Est GFR (Non-African American) 48.5 ml/min; Globulin 4.5 gm/dl (2.5-4.0); Glucose 139 mg/dl (70-99(Fasting)); Sodium 136 mmol/L (136-145); Total Protein 9.4 gm/dl (6.0-8.3)
[2023-09-20 18:13] LABS: Partial Thromboplastin Ratio 0.9; Partial Thromboplastin Time 23 Seconds (21-31); Prothrombin Time 10.8 Seconds (9.0-12.0); Troponin I High Sensitivity 211.4 pg/ml (0-20)
[2023-09-20] MEDS: SODIUM CHLORIDE 0.9% 500 ML IV SCH (18:19)
--- NOTE | 2023-09-20 18:21 | XRay Report ---
XR chest 1V portable CLINICAL HISTORY: fatigue TECHNIQUE: Single frontal radiograph of the chest was obtained. Comparison: Comparison is made to chest radiograph 12/20/2019 FINDINGS: No lines and tubes are seen. The cardiomediastinal silhouette is normal. The lungs are clear. No evid ence of pleural effusion or pneumothorax. IMPRESSION: No acute chest disease. ACT 112: Negative or not required by law. Electronically signed by: Robson Rizo M.D. 09/20/2023 6:20 PM
[2023-09-20 19:36] LABS: Potassium 3.6 mmol/L (3.5-5.1)
--- NOTE | 2023-09-20 19:39 | History & Physical Report ---
Date of Service September 20, 2023 Assessment & Plan (1) Second-degree heart block: Plan: Patient was found to have second-degree AV block Noted the patient takes bisoprolol. Will hold the bisoprolol as this could be the culprit drug. He is hemodynamically stable. No chest pain, shortness of breath, hypotension, confusion. Will monitor on telemetry Consult cardiology Check Lyme's screening Check TSH (2) Elevated troponin: Plan: Patient has elevated troponin of 211 Will trend the troponin Most likely demand ischemia from heart block Check echocardiogram in a.m. Consult cardiology (3) Acute kidney injury: Plan: Creatinine is slightly elevated at 1.4 Will hydrate gently Recheck BMP in a.m. (4) Hyperlipidemia: Plan: Continue Lipitor (5) Prediabetes: Plan: Patient claims that he is a prediabetic and is not on any hypoglycemic agents. Most recent A1c in July was 6.5. He most likely needs to get started on some oral medications for for his diabetes. Plan DVT prophylaxis: Lovenox Full code History of Present Illness Chief Complaint: Fatigue Primary Care Provider: Miroslava Carlson MD This is a 72-year-old -Iranian male who presented with the above chief complaint. The patient is an avid biker. He recently did a 12 mile bike ride 1 week ago. Since then, he has noticed increased fatigue lately. He does not feel like going for walks anymore which he normally does. He has also noticed some pressure sensation in his head. Because of his symptoms, he went to urgent care today and he was sent to the ER for concerns of possible atrial fibrillation. But he was noted to have a second-degree heart block for which admission has been requested. The patient denies dizziness, chest pain, shortness of breath, loss of consciousness, blurred vision, confusion. His only complaints are easy fatigability and a pressure sensation in his head. He has done the bike ride 1 week ago but he is not a very outdoorsy kind of person. Does not think that he has had any tick bites lately. Past medical history 1. Benign essential hypertension, on bisoprolol 2.5 mg, amlodipine, triamterene/hydrochlorothiazide 2. History of PVCs. On bisoprolol. 3. LVH, due to hypertensive heart disease 4. Hyperlipidemia. On Lipitor. 5. First-degree heart block Allergies Allergy/AdvReac Type Severity Reaction Status Date / Time No Known Allergies Allergy Verified 07/28/23 09:14 Home Medications Medication Instructions Recorded Confirmed Type aspirin 81 mg tablet,delayed 81 mg PO QAM 11/17/18 09/20/23 History release (Adult Low Dose Aspirin) calcium carbonate (Tums) 300 mg PO TID PRN gerd 05/16/21 09/20/23 History sildenafil 100 mg tablet 100 mg PO DAILY PRN Sexual 02/24/23 09/20/23 Rx Activity #10 tabs amlodipine 10 mg tablet 10 mg PO QAM #90 tabs 05/14/23 09/20/23 Rx bisoprolol fumarate 5 mg tablet 2.5 mg (1/2 x 5 mg) PO DAILY 90 06/18/23 09/20/23 Rx days #45 tabs atorvastatin 80 mg tablet 80 mg PO QPM #90 tabs 07/22/23 09/20/23 Rx triamterene 37.5 1 cap PO QAM #90 caps 08/12/23 09/20/23 Rx mg-hydrochlorothiazide 25 mg capsule blood-glucose sensor (FreeStyle #1 ea 09/15/23 09/20/23 Rx Deb 3 Sensor device) zolpidem 10 mg tablet 5 - 10 mg (0.5 - 1 x 10 mg) PO HS 09/15/23 09/20/23 Rx PRN Insomnia #90 tabs Past Med/Surg History Problem List (Updated 09/20/23 @ 19:34 by Rosanna Rodríguez MD) Prediabetes Hyperlipidemia Acute kidney injury Elevated troponin Second-degree heart block Type II diabetes mellitus Hypertriglyceridemia PVC (premature ventricular contraction) Vision problem Mitral insufficiency LVH (left ventricular hypertrophy) (12/20/19) Seen on echocardiogram, mild concentric LVH, LVEF 60-65% without wall motion abnormalities Hearing difficulty Diastolic dysfunction First degree heart block (Acute) Erectile dysfunction Insomnia HTN (hypertension) Dyslipidemia Medical History Mitral insufficiency LVH (left ventricular hypertrophy) follows with Dr. 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 Beliefs That Will Affect Care: None marital status: Single Current Living Situation: Significant Other current occupational status: employed Feels Safe at Home: Yes Childhood Exposure to Second-Hand Smoke: No Diet Comment: No red meat over 50 years caffeine: Yes Dental Care, Regularly: Yes Physical Activity Frequency: 3-4 Times per Week Physical Activity Frequency Comment: Cyclist Seatbelt Use: always Sunscreen Use: Yes Assistive Devices: Glasses Review of Systems Review of Systems: All systems reviewed & are unremarkable except as noted in HPI & below Physical Exam Physical Exam: General appearance: Awake, conversant, able to answer questions appropriately. AOx3. Pupils: Equally reactive to light and accommodation Neck: No masses, no thyromegaly Respiration: Clear to auscultation bilaterally. Normal effort Cardiovascular: S1-S2/regular rhythm, slow rate. No murmur, rubs or gallop. No edema. Abdomen: Soft, nontender, nondistended. No hepatosplenomegaly Musculoskeletal: No clubbing, no cyanosis, normal range of motion Skin: No rashes, no nodules Neuro exam: Cranial nerves intact, sensation grossly intact Psychiatric: Patient has good judgment and insight. AOx3. Mood and affect appear normal Lymphatics: No cervical or axillary lymphadenopathy noted Results & Data Results & Data Vital Signs (Past 12 Hours) Vital Signs Temp Pulse Pulse Resp BP BP Pulse Ox 09/20/23 18:39 09/20/23 18:39 57 L 22 153/88 H 98 09/20/23 18:39 09/20/23 18:10 153/88 H 09/20/23 18:03 47 L 21 09/20/23 18:00 51 L 24 09/20/23 17:38 40 L 09/20/23 17:30 45 L 13 99 09/20/23 17:29 187/80 H 09/20/23 17:07 36.5 C 53 L 20 167/81 H 96 O2 Del Method 09/20/23 18:39 Room Air 09/20/23 18:39 Room Air 09/20/23 18:39 Room Air 09/20/23 18:10 09/20/23 18:03 09/20/23 18:00 09/20/23 17:38 09/20/23 17:30 Room Air 09/20/23 17:29 09/20/23 17:07 Laboratory Results Abnormal lab results 09/20/23 Range/Units 17:30 MPV 13.0 H (9.4-12.4) fL Creatinine 1.44 H (0.6-1.4) mg/dl Glucose 139 H (70-99(Fasting)) mg/dl Total Bilirubin 1.1 H (0.2-1.0) mg/dl Troponin I High Sens 211.4 H* (0-20) pg/ml Total Protein 9.4 H (6.0-8.3) gm/dl Globulin 4.5 H (2.5-4.0) gm/dl Diagnostic Findings Chest X-Ray 09/20/23 17:30 XR chest 1V portable CLINICAL HISTORY: fatigue TECHNIQUE: Single frontal radiograph of the chest was obtained. Comparison: Comparison is made to chest radiograph 12/20/2019 FINDINGS: No lines and tubes are seen. The cardiomediastinal silhouette is normal. The lungs are clear. No evidence of pleural effusion or pneumothorax. IMPRESSION: No acute chest disease. ACT 112: Negative or not required by law. Electronically signed by: Robson Rizo M.D. 09/20/2023 6:20 PM PG Care Time/CCT Total # of Minutes Spent Total Time Spent with Patient: Total time spent is greater than 50% in coordination of care (as documented) at patient's floor/unit and/or counseling patient: Coding Level of Care Code 90872 INT INP/OBS CARE 2/55MIN Diagnoses Second-degree heart block I44.1 Elevated troponin R79.89 Acute kidney injury N17.9 Hyperlipidemia E78.5 Prediabetes R73.03
[2023-09-20] MEDS ORDERED: ONDANSETRON INJ 2 MG/ML 2 ML VIAL IV PRN (21:23)
[2023-09-20] MEDS ORDERED: POLYETHYLENE (MIRALAX) 17 GM PACK PO PRN (21:23)
[2023-09-20] MEDS ORDERED: ZOLPIDEM TARTRATE 5 MG TAB PO PRN (21:23)
[2023-09-20] MEDS: SODIUM CHLORIDE 0.9% 1,000 ML IV SCH (22:10)
[2023-09-20] MEDS: ATORVASTATIN 40 MG TAB PO SCH (22:10)
[2023-09-20 22:15] LABS: Troponin I High Sensitivity 245.5 pg/ml (0-20)
[2023-09-20 22:24] LABS: Thyroid Stimulating Hormone 2.28 uIu/ml (0.300-4.500)
[2023-09-21 04:42] LABS: BUN Creatinine Ratio 13.9 (10-20); Calcium 9.2 mg/dl (8.6-10.3); Est GFR (African American) 73.8 ml/min; Est GFR (Non-African American) 63.7 ml/min; Potassium 3.5 mmol/L (3.5-5.1)
[2023-09-21 04:51] LABS: Troponin I High Sensitivity 314.6 pg/ml (0-20)
[2023-09-21] MEDS ORDERED: ENOXAPARIN 1 MG/KG SC SCH (07:45)
[2023-09-21] MEDS ORDERED: ENOXAPARIN INJ 40 MG/0.4 ML SYR SQ SCH (09:00)
[2023-09-21] MEDS: ENOXAPARIN 100 MG/1ML SYR SQ SCH (09:12)
[2023-09-21 09:18] LABS: Magnesium 2.1 mg/dl (1.7-2.4)
--- NOTE | 2023-09-21 11:33 | Cardiology Consultation ---
Date of Consultation September 21, 2023 Assessment & Plan (1) Second-degree heart block: (2) Elevated troponin I level: Plan 1. Second-degree AV block: He has longstanding first-degree AV block and is on beta-blockade (although low-dose) so I would certainly agree with holding it and it may simply be AV peng disease that has progressed and become more evident now. It may take a day or 2 for the bisoprolol to be metabolized so that we can see whether he has an improvement in AV conduction. However the elevated troponin is a little bit worrisome and his electrocardiogram suggests lateral ST deviation. Although not likely ischemic as a cause of second-degree AV block perhaps that is present, or perhaps this is some type of myocarditis. 2. Elevated troponin: His troponin peaked this morning at around 4 AM at 315. With an elevated troponin and lateral T wave abnormalities which are not present in 2020 (at which time he had a negative stress test) this does raise the possibility of ischemia or myocarditis. I am going to get an echocardiogram, if that shows left ventricular dysfunction I think we should proceed to catheterization. If it does not show left ventricular dysfunction then I think we can consider stress testing, but I am inclined to do some type of ischemic evaluation despite the arrhythmia. I will make him n.p.o. for tomorrow morning. History of Present Illness Reason for Consultation: AV block, abnormal cardiac enzymes Attending Physician: Rosanna Rodríguez MD History of Present Illness This is a 72-year-old male who follows with Dr. José, last seen in January 2023. He has a history of diabetes mellitus, hypertension, hypercholesterolemia, mild LVH with diastolic dysfunction and longstanding first-degree AV block. He also has symptomatic PVCs. An echocardiogram done December 31, 2022 showed normal left ventricular systolic function with mild LVH and mild mitral regurgitation. As an outpatient he has been on relatively low- dose bisoprolol 2.5 mg daily, amlodipine 10 mg daily and triamterene/hydrochlorothiazide as well as atorvastatin and aspirin. He presented to the emergency room on September 20, 2023 with fatigue and an irregular heart rate. This was thought possibly due to atrial fibrillation however electrocardiography sinus rhythm with Mobitz 1 AV block. He has been hemodynamically stable with no hypotension, his heart rate has been varying between the mid 30s and the mid 50s. His bisoprolol has been held. Blood work is notable for his creatinine on presentation being mildly elevated, but that has been true in the past as well. His troponins have been elevated, they are relatively stable over a period of 16 hours but have ranged from 197-314 with perhaps a very slight upward trend. His electrocardiogram shows no acute findings however he does have lateral ST depression, his most recent electrocardiogram in the chart is from 2019 and this was not present. He had a stress echo in December 2019 where he had first-degree AV block and he achieved 86% of his maximal predicted heart rate and this was negative for ischemia. His echocardiogram shows normal left ventricular systolic function with ejection fraction of 60 to 65% and normal wall motion. Here his echocardiogram shows mild to moderate mitral regurgitation with a slightly elevated right ventricular systolic pressure. On close questioning he has noticed fatigue recently, he rides his bicycle regularly and did notice relatively recently that he cannot achieve as high heart rate as he could in the past but in general has not had a lot of symptoms related to the rhythm. He has had no significant lightheadedness, dizziness, presyncope and has not had syncope. He denies exertional chest discomfort. Allergies Allergy/AdvReac Type Severity Reaction Status Date / Time No Known Allergies Allergy Verified 07/28/23 09:14 Home Medications Medication Instructions Recorded Confirmed Type aspirin 81 mg tablet,delayed 81 mg PO QAM 11/17/18 09/20/23 History release (Adult Low Dose Aspirin) calcium carbonate (Tums) 300 mg PO TID PRN gerd 05/16/21 09/20/23 History sildenafil 100 mg tablet 100 mg PO DAILY PRN Sexual 02/24/23 09/20/23 Rx Activity #10 tabs amlodipine 10 mg tablet 10 mg PO QAM #90 tabs 05/14/23 09/20/23 Rx bisoprolol fumarate 5 mg tablet 2.5 mg (1/2 x 5 mg) PO DAILY 90 06/18/23 09/20/23 Rx days #45 tabs atorvastatin 80 mg tablet 80 mg PO QPM #90 tabs 07/22/23 09/20/23 Rx triamterene 37.5 1 cap PO QAM #90 caps 08/12/23 09/20/23 Rx mg-hydrochlorothiazide 25 mg capsule blood-glucose sensor (FreeStyle #1 ea 07/01/24 07/06/24 Rx Deb 3 Sensor device) zolpidem 10 mg tablet 5 - 10 mg (0.5 - 1 x 10 mg) PO HS 09/15/23 09/20/23 Rx PRN Insomnia #90 tabs Patient History Medical History Mitral insufficiency LVH (left ventricular hypertrophy) follows with Dr. 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 Beliefs That Will Affect Care: None marital status: Single Current Living Situation: Alone current occupational status: employed Feels Safe at Home: Yes Childhood Exposure to Second-Hand Smoke: No Diet Comment: No red meat over 50 years caffeine: Yes Dental Care, Regularly: Yes Physical Activity Frequency: 3-4 Times per Week Physical Activity Frequency Comment: Cyclist Seatbelt Use: always Sunscreen Use: Yes Assistive Devices: Glasses Review of Systems Review of Systems: His review of systems is notable as in the HPI Physical Exam Physical Exam: Constitutional: Alert, cooperative and in no distress. HEENT: Unremarkable Neck: No jugular venous distention, carotid pulses are irregular but otherwise normal and equal bilaterally without bruits. Pulmonary: Clear to auscultation bilaterally. Cardiac: Irregular rhythm with no murmur, gallop or rub. Abdomen: Soft, nontender with normal bowel sounds. Extremities: No edema. Distal pulses intact. Neurologic: No focal findings. Skin: No rash, ecchymoses or petechiae. Results & Data Vital Signs (Past 12 Hours) Vital Signs Temp Pulse Pulse Resp BP Pulse Ox O2 Del Method 09/21/23 11:01 36.8 C 43 L 20 147/70 H 98 Room Air 09/21/23 08:05 40 L 09/21/23 07:37 36.5 C 53 L 18 158/78 H 97 Room Air 09/21/23 02:40 36.7 C 40 L 16 127/68 96 Room Air Laboratory Results Cardiac Enzymes 09/20/23 09/20/23 09/20/23 Range/Units 17:30 18:59 19:51 AST TNP 34 Troponin I High Sens 211.4 H* 197.6 H* (0-20) pg/ml 09/20/23 09/21/23 09/21/23 Range/Units 21:34 03:54 09:11 AST Troponin I High Sens 245.5 H* D 314.6 H* D 296.5 H* (0-20) pg/ml Coagulation 09/20/23 Range/Units 17:30 PT 10.8 (9.0-12.0) Seconds APTT 23 (21-31) Seconds CBC 09/20/23 Range/Units 17:30 WBC 6.43 (4.8-10.8) K/ul RBC 5.29 (4.70-6.10) M/uL Hgb 14.6 (14.0-18.0) g/dl Hct 45.4 (42.0-52.0) % Plt Count 159 (130-400) K/uL Neut # (Auto) 2.86 (1.40-6.50) K/uL Lymph # (Auto) 2.90 (1.20-3.40) K/uL Karnes # (Auto) 0.57 (0.11-0.59) K/uL Eos # (Auto) 0.06 (0.00-0.50) K/uL Baso # (Auto) 0.03 (0.00-0.20) K/uL Comprehensive Metabolic Panel 09/20/23 09/20/23 09/21/23 Range/Units 17:30 18:59 03:54 Sodium 136 138 (136-145) mmol/L Potassium TNP 3.6 3.5 Chloride 100 103 (98-107) mmol/L Carbon Dioxide 26 26 (21-32) mmol/L BUN 23 16 (6-23) mg/dl Creatinine 1.44 H 1.15 (0.6-1.4) mg/dl Glucose 139 H 94 (70-99(Fasting)) mg/dl Calcium 10.3 9.2 (8.6-10.3) mg/dl AST TNP 34 ALT 39 (7-52) U/L Alkaline Phosphatase 52 (34-104) U/L Total Protein 9.4 H (6.0-8.3) gm/dl Albumin 4.9 (3.4-5.0) gm/dl Intake and Output 09/20/23 09/21/23 09/21/23 22:59 06:59 14:59 Intake Total 500 / 500 1000 / 1000 Output Total 250 / 250 700 / 700 Balance 500 / 250 -250 / 250 300 / 300 Intake: IV 500 / 500 1000 / 1000 Sodium Chloride 0.9% 1,000 ml @ 1000 / 1000 100 mls/hr IV .Q10H RIC Rx#: [id number] Sodium Chloride 0.9% 500 ml @ 500 / 500 999 mls/hr IV .Q31M RIC Rx#: [id number] Output: Urine 250 / 250 700 / 700 Other: Other Intake Source NPO Weight 88.5 kg 88.5 kg Weight Measurement Method Standing Scale Standing Scale Diagnostic Findings Telemetry: Sinus rhythm with second-degree AV block and occasional episodes of what is probably high-grade AV block. PG Care Time/CCT Total # of Minutes Spent Total Time Spent with Patient: Total time spent is greater than 50% in coordination of care (as documented) at patient's floor/unit and/or counseling patient: Coding Level of Care Code 36955 INT INP/OBS CARE 2/55MIN Diagnoses Second-degree heart block I44.1 Elevated troponin I level R79.89
[2023-09-21] MEDS: ASPIRIN 81 MG ECTAB PO SCH (13:08)
[2023-09-21] MEDS: amLODIPine BESYLATE 5 MG TAB PO SCH (13:08)
[2023-09-21] MEDS: POTASSIUM CHLORIDE CRTAB 20 MEQ TABCR PO STA ×2 (13:25→13:39)
--- NOTE | 2023-09-21 15:27 | Hospitalist Progress Note ---
Date of Service September 21, 2023 Assessment & Plan (1) Second-degree heart block: Plan: Patient was found to have second-degree AV block Lyme screen negative, TSH normal Heart rate still low today Telesales Team Leader involved. Agrees with holding bisoprolol and waiting for it to get metabolized as this could be the culprit agent. Remains stable hemodynamically with no chest pain, shortness of breath, hypotension, confusion. (2) Elevated troponin: Plan: Telesales Team Leader involved Troponin elevated in the 300s range now. Started Lovenox therapeutic dose Echocardiogram pending. 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 Awaiting further cardiology input (3) Acute kidney injury: Plan: Resolved with hydration Discontinue IV fluids (4) Hyperlipidemia: Plan: Continue Lipitor (5) Prediabetes: Plan: Patient claims that he is a prediabetic and is not on any hypoglycemic agents. Most recent A1c in July was 6.5. He most likely needs to get started on some oral medications for for his diabetes. He will speak to his PCP in near future. Plan DVT prophylaxis: Lovenox Full code Admission and Anticipated Discharge Date Admission Date: September 20, 2023 Subjective Today the patient feels fine. Denies dizziness, chest pain, shortness of breath. Blood pressure has been stable. However the nurse informed me of a change in his EKG this morning. Review of Systems Review of Systems: All systems reviewed & are unremarkable except as noted in Subjective Physical Exam Physical Exam: General: Awake, conversant Heart: S1, S2/decreased rate with regular rhythm, no murmur rubs or gallops Lungs: Clear to auscultation bilaterally. Normal effort Abdomen: Soft/nontender/nondistended. No hepatosplenomegaly Extremities: No clubbing/cyanosis. No edema Behavior: Appropriate, cooperative Results & Data Results & Data Vital Signs (Past 12 Hours) Vital Signs Temp Pulse Pulse Resp BP Pulse Ox O2 Del Method 09/21/23 14:10 37 L 09/21/23 11:01 36.8 C 43 L 20 147/70 H 98 Room Air 09/21/23 08:05 40 L 09/21/23 07:37 36.5 C 53 L 18 158/78 H 97 Room Air Laboratory Results Abnormal lab results 09/20/23 09/20/23 09/20/23 Range/Units 17:30 19:51 21:34 MPV 13.0 H (9.4-12.4) fL Creatinine 1.44 H (0.6-1.4) mg/dl Glucose 139 H (70-99(Fasting)) mg/dl Total Bilirubin 1.1 H (0.2-1.0) mg/dl Troponin I High Sens 211.4 H* 197.6 H* 245.5 H* D (0-20) pg/ml Total Protein 9.4 H (6.0-8.3) gm/dl Globulin 4.5 H (2.5-4.0) gm/dl 09/21/23 09/21/23 Range/Units 03:54 09:11 MPV (9.4-12.4) fL Creatinine (0.6-1.4) mg/dl Glucose (70-99(Fasting)) mg/dl Total Bilirubin (0.2-1.0) mg/dl Troponin I High Sens 314.6 H* D 296.5 H* (0-20) pg/ml Total Protein (6.0-8.3) gm/dl Globulin (2.5-4.0) gm/dl Diagnostic Findings Chest X-Ray 09/20/23 17:30 XR chest 1V portable CLINICAL HISTORY: fatigue TECHNIQUE: Single frontal radiograph of the chest was obtained. Comparison: Comparison is made to chest radiograph 12/20/2019 FINDINGS: No lines and tubes are seen. The cardiomediastinal silhouette is normal. The lungs are clear. No evidence of pleural effusion or pneumothorax. IMPRESSION: No acute chest disease. ACT 112: Negative or not required by law. Electronically signed by: Robson Rizo M.D. 09/20/2023 6:20 PM PG Care Time/CCT Total # of Minutes Spent Total Time Spent with Patient: Total time spent is greater than 50% in coordination of care (as documented) at patient's floor/unit and/or counseling patient: Coding Level of Care Code 70647 SUB INP/OBS CARE 2/35MIN Diagnoses Second-degree heart block I44.1 Elevated troponin R79.89 Acute kidney injury N17.9 Hyperlipidemia E78.5 Prediabetes R73.03
--- NOTE | 2023-09-21 17:01 | XCELERA ---
[id number]
[2023-09-22] MEDS: ALUMINUM/MAGNESIUM SUSP 30 ML UDC PO PRN (03:46)
--- NOTE | 2023-09-22 06:02 | Electrocardiogram Report ---
Test Reason : Blood Pressure : / mmHG Vent. Rate : 054 BPM Atrial Rate : 054 BPM P-R Int : 400 ms QRS Dur : 106 ms QT Int : 410 ms P-R-T Axes : 076 031 102 degrees QTc Int : 388 ms Sinus bradycardia with 2nd degree A-V block (Mobitz I) ST depression, consider subendocardial injury Nonspecific T wave abnormality Abnormal ECG When compared with ECG of 20-DEC-2019 06:33, Second degree AV block is now present ST now depressed in Anterolateral leads Confirmed by Al Gallardo ([id number]) on 09/22/2023 6:01:43 AM Referred By: REFERRED SELF Confirmed By:Al Gallardo
--- NOTE | 2023-09-22 06:03 | Electrocardiogram Report ---
Test Reason : Blood Pressure : / mmHG Vent. Rate : 057 BPM Atrial Rate : 057 BPM P-R Int : 000 ms QRS Dur : 110 ms QT Int : 414 ms P-R-T Axes : 000 027 111 degrees QTc Int : 402 ms Sinus rhythm with 2nd degree A-V block with Premature ventricular complexes Nonspecific ST and T wave abnormality Abnormal ECG When compared with ECG of 20-SEP-2023 17:46, (unconfirmed) No significant change Confirmed by Al Gallardo ([id number]) on 09/22/2023 6:02:35 AM Referred By: REFERRED SELF Confirmed By:Al Gallardo
[2023-09-22 09:31] LABS: BUN Creatinine Ratio 15.7 (10-20); Calcium 9.2 mg/dl (8.6-10.3); Creatinine Clr Calc Pharmacy 60.7 ml/min; Est GFR (African American) 65.4 ml/min; Est GFR (Non-African American) 56.5 ml/min; Potassium 4.3 mmol/L (3.5-5.1)
--- NOTE | 2023-09-22 15:52 | Electrocardiogram Report ---
Test Reason : Blood Pressure : / mmHG Vent. Rate : 055 BPM Atrial Rate : 042 BPM P-R Int : 000 ms QRS Dur : 106 ms QT Int : 432 ms P-R-T Axes : 054 046 229 degrees QTc Int : 413 ms Sinus rhythm with Mobitz 1 conduction and PVCs Abnormal ECG When compared with ECG of 20-SEP-2023 19:30, (unconfirmed) Inverted T waves have replaced nonspecific T wave abnormality in Inferior leads Confirmed by Faisal Dunn ([id number] on 09/22/2023 3:52:00 PM Referred By: REFERRED SELF Confirmed By:Mathew Dunn
--- NOTE | 2023-09-22 15:53 | Hospitalist Progress Note ---
Date of Service September 22, 2023 Assessment & Plan (1) Second-degree heart block: Plan: Patient was found to have second-degree AV block Lyme screen negative, TSH normal Heart rate still low today Holding bisoprolol Remains stable hemodynamically with no chest pain, shortness of breath, hypotension, confusion. Underwent stress test today with no improvement in AV conduction. Cardiology recommending pacemaker placement. Patient would like to think about it before committing. (2) Elevated troponin: Plan: Senior Stereo Compiler Team Lead involved Troponin peaked at 300 On Lovenox therapeutic dose since 7/7 AM. Cardiology recommended switching to DVT prophylaxis dose Echocardiogram showed normal EF and no wall motion abnormalities. Cardiology decided to do a stress test. The stress test did not go well and showed lots of ventricular ectopy and the AV conduction did not improve Cardiology recommends cardiac catheterization and pacemaker placement. Patient is not ready to commit yet. He would like to think about these "big decisions" (3) Acute kidney injury: Plan: Resolved with hydration Discontinued IV fluids (4) Hyperlipidemia: Plan: Continue Lipitor (5) Prediabetes: Plan: Patient claims that he is a prediabetic and is not on any hypoglycemic agents. Most recent A1c in July was 6.5. He most likely needs to get started on some oral medications for for his diabetes. He will speak to his PCP in near future. Plan DVT prophylaxis: Lovenox Full code Admission and Anticipated Discharge Date Admission Date: September 20, 2023 Subjective Patient feels well. However, I was informed by Dr. Dunn that during the stress test, he had lots of ventricular ectopy and his AV conduction was not much better. He recommended a pacemaker and a cardiac catheterization. However the patient tells me that he is not ready to commit and would like to think about it and talk to his friends. Review of Systems Review of Systems: All systems reviewed & are unremarkable except as noted in Subjective Physical Exam Physical Exam: General: Awake, conversant Heart: S1, S2/decreased rate with regular rhythm, no murmur rubs or gallops Lungs: Clear to auscultation bilaterally. Normal effort Abdomen: Soft/nontender/nondistended. No hepatosplenomegaly Extremities: No clubbing/cyanosis. No edema Behavior: Appropriate, cooperative Results & Data Results & Data Vital Signs (Past 12 Hours) Vital Signs Temp Pulse Resp BP Pulse Ox O2 Del Method 09/22/23 10:40 36.3 C L 40 L 18 151/70 H 100 Room Air 09/22/23 07:45 36.7 C 34 L 18 157/72 H 99 Room Air PG Care Time/CCT Total # of Minutes Spent Total Time Spent with Patient: Total time spent is greater than 50% in coordination of care (as documented) at patient's floor/unit and/or counseling patient: Coding Level of Care Code 65036 SUB INP/OBS CARE 2/35MIN Diagnoses Second-degree heart block I44.1 Elevated troponin R79.89 Acute kidney injury N17.9 Hyperlipidemia E78.5 Prediabetes R73.03
--- NOTE | 2023-09-22 15:55 | Electrocardiogram Report ---
Test Reason : Blood Pressure : / mmHG Vent. Rate : 042 BPM Atrial Rate : 042 BPM P-R Int : 000 ms QRS Dur : 104 ms QT Int : 472 ms P-R-T Axes : 078 048 107 degrees QTc Int : 394 ms Sinus rhythm with high-degree AV block Incomplete right bundle branch block Abnormal ECG When compared with ECG of 20-SEP-2023 21:41, (unconfirmed) Current undetermined rhythm precludes rhythm comparison, needs review Nonspecific T wave abnormality has replaced inverted T waves in Inferior leads T wave inversion now evident in Anterior leads Confirmed by Faisal Dunn ([id number]) on 09/22/2023 3:55:26 PM Referred By: REFERRED SELF Confirmed By:Mathew Dunn
--- NOTE | 2023-09-22 16:44 | XCELERA ---
[id number]
--- NOTE | 2023-09-22 17:57 | Cardiology Progress Note ---
Date of Service September 22, 2023 Assessment & Plan (1) Second-degree heart block: (2) Elevated troponin I level: Plan 1. Second-degree AV block: His degree of AV block did not seem to improve reliably during exercise this afternoon. While I do think this is progression of AV peng disease, I recommended a pacemaker at this point. I think he is a good candidate for continued beta-rowdy therapy in a pacemaker would facilitate that therapy. I think he will get a pacemaker at some point whether it is this admission or in the near future. He is still opposed to a pacemaker at this point. 2. Elevated troponin: While there was noted definitive evidence of ischemia on the EKG or echocardiogram during stress testing today, even at a low workload he had much worse ventricular ectopy and brief periods of ventricular tachycardia. In the setting of mildly elevated cardiac biomarkers I recommend coronary angiography. I described the procedure and attendant risks to the patient. He has not yet consented to the procedure. Also suggested staying in the hospital until angiography could be performed. I did not recommend leaving the hospital without coronary angiography. He wants to discuss his options with friends and we will readdress the topic in the morning. Admission and Anticipated Discharge Date Admission Date: September 20, 2023 Subjective This afternoon the patient claimed he feeling well. He reported ambulating around his room without significant dizziness or dyspnea. No symptoms of chest pain. No sense of palpitation. Review of Systems Review of Systems: Per HPI Physical Exam Physical Exam: Constitutional: Alert, cooperative and in no distress. HEENT: Unremarkable Neck: No jugular venous distention, carotid pulses are irregular but otherwise normal and equal bilaterally without bruits. Pulmonary: Normal respiratory effort Cardiac: Irregular rhythm with no murmur, gallop or rub. Extremities: No edema. Distal pulses intact. Neurologic: No focal findings. Skin: No rash, ecchymoses or petechiae. Results & Data Vital Signs (Past 12 Hours) Vital Signs Temp Pulse Resp BP Pulse Ox O2 Del Method 09/22/23 16:18 36.7 C 37 L 18 119/71 98 Room Air 09/22/23 10:40 36.3 C L 40 L 18 151/70 H 100 Room Air 09/22/23 07:45 36.7 C 34 L 18 157/72 H 99 Room Air Laboratory Results Abnormal Lab Results 09/22/23 08:16 Sodium 137 Potassium 4.3 D Chloride 106 Carbon Dioxide 26 Anion Gap 5 BUN 20 Creatinine 1.27 Est Cr Clr Drug Dosing 60.7 Est GFR ( Amer) 65.4 Est GFR (Non-Af Amer) 56.5 BUN/Creatinine Ratio 15.7 Glucose 91 Calcium 9.2 PG Care Time/CCT Total # of Minutes Spent Total Time Spent with Patient: Total time spent is greater than 50% in coordination of care (as documented) at patient's floor/unit and/or counseling patient: Coding Level of Care Code 14253 SUB INP/OBS CARE 2/35MIN Diagnoses Second-degree heart block I44.1 Elevated troponin I level R79.89
[2023-09-23 07:54] LABS: BUN Creatinine Ratio 17.8 (10-20); Calcium 8.9 mg/dl (8.6-10.3); Creatinine Clr Calc Pharmacy 65.1 ml/min; Est GFR (African American) 71.5 ml/min; Est GFR (Non-African American) 61.7 ml/min; Potassium 3.9 mmol/L (3.5-5.1)
[2023-09-23] MEDS: ENOXAPARIN INJ 40 MG/0.4 ML SYR SQ SCH (08:22)
[2023-09-23] MEDS: SODIUM CHLORIDE 0.9% 1,000 ML IV SCH (09:29)
--- NOTE | 2023-09-23 11:59 | Pre Anesthesia Assessment ---
Date of Service September 23, 2023 Pre Sedation Assessment Vital Signs Temp Pulse Pulse Resp BP BP Pulse Ox 09/23/23 11:54 36.5 C 54 L 18 154/85 H 98 09/23/23 07:38 36.6 C 50 L 18 157/74 H 100 09/23/23 02:40 36.3 C L 37 L 16 151/67 H 99 09/22/23 23:05 36.5 C 38 L 16 159/71 H 97 09/22/23 23:00 37 L 09/22/23 19:41 36.6 C 43 L 14 117/71 98 09/22/23 16:18 36.7 C 37 L 18 119/71 98 O2 Del Method 09/23/23 11:54 Room Air 09/23/23 07:38 Room Air 09/23/23 02:40 Room Air 09/22/23 23:05 Room Air 09/22/23 23:00 09/22/23 19:41 Room Air 09/22/23 16:18 Room Air Cardiovascular + bradycardic and + irregularly irregular Respiratory + respiratory effort normal Pre-Sedation Airway Assessment Smoking Status: Never smoker Hx Sleep Apnea: No Hx Difficult Intubation: No Short, Thick Neck: No Thyromental Distance: > or= 3.5 Finger Breadths Oral Cavity: + WNL Mallampati Class: III ASA: ASA3 Procedure Planning Contraindications for Sedation: none Current Medications Reviewed: Yes Notes The planned sedation has been discussed with the patient. Informed Consent was obtained. I have identified the patient, determined the appropriateness of sedation and have assessed the patient immediately prior to the procedure. All medicine(s) and interventions are by my order.
--- NOTE | 2023-09-23 12:06 | Cardiology Progress Note ---
Date of Service September 23, 2023 Assessment & Plan (1) Second-degree heart block: (2) Elevated troponin I level: Plan 1. Second-degree AV block: He continues to have second-degree AV block. There were periods at nighttime where there was higher degree AV block. He is not appear to be overtly symptomatic from the resulting bradycardia. He does have a lot of ventricular ectopy and nonsustained VT which may be related to his conduction disease and bradycardia. I have recommended a pacemaker however, he is interested in postponing the procedure for a couple of weeks. 2. Elevated troponin: Based on his ventricular arrhythmias especially with exercise during treadmill testing we have elected to perform coronary angiography today. Admission and Anticipated Discharge Date Admission Date: September 20, 2023 Subjective This morning the patient claimed to be feeling well. He did not sleep for unclear reasons. However, he has been ambulatory around his room. He is aware of some sensation of his heartbeat when lying back in bed. However, no true palpitations. Only dizziness when standing up rapidly. No chest pain. Review of Systems Review of Systems: Per HPI Physical Exam Physical Exam: Constitutional: Alert, cooperative and in no distress. HEENT: Unremarkable Neck: No jugular venous distention, carotid pulses are irregular but otherwise normal and equal bilaterally without bruits. Pulmonary: Normal respiratory effort Cardiac: Irregular rhythm with no murmur, gallop or rub. Extremities: No edema. Distal pulses intact. Neurologic: No focal findings. Skin: No rash, ecchymoses or petechiae. ENMT: Mallampati Class: III Respiratory: normal respiratory effort Cardiovascular: Rate/Rhythm: + bradycardic and + irregularly irregular Results & Data Vital Signs (Past 12 Hours) Vital Signs Temp Pulse Resp BP Pulse Ox O2 Del Method 09/23/23 11:54 36.5 C 54 L 18 154/85 H 98 Room Air 09/23/23 07:38 36.6 C 50 L 18 157/74 H 100 Room Air 09/23/23 02:40 36.3 C L 37 L 16 151/67 H 99 Room Air PG Care Time/CCT Total # of Minutes Spent Total Time Spent with Patient: Total time spent is greater than 50% in coordination of care (as documented) at patient's floor/unit and/or counseling patient: Coding Level of Care Code 77724 SUB INP/OBS CARE 2/35MIN Diagnoses Second-degree heart block I44.1 Elevated troponin I level R79.89
[2023-09-23] MEDS: MIDAZOLAM HCL 1 MG/ML 2ML VIAL ONE (13:05)
[2023-09-23] MEDS: niCARdipine HCL INJ 2.5 MG/ML 10 ML AMP ONE (13:05)
[2023-09-23] MEDS: NITROGLYCERIN/D5W 100MCG/ML 20ML SYR ONE (13:06)
[2023-09-23] MEDS: HEPARIN (PORCINE) 1000 UNIT/ML 10 ML (CATH LAB USE ONLY) ONE (13:19)
[2023-09-23] MEDS: OPTIRAY 350 ONE (13:19)
[2023-09-23] MEDS: fentaNYL citrate PF 100 MCG/2 ML VIAL ONE (13:19)
--- NOTE | 2023-09-23 13:21 | Hospitalist Progress Note ---
Date of Service September 23, 2023 Assessment & Plan (1) Second-degree heart block: Plan: Present on admission. Admitting EKG appears to be more consistent with third- degree AV block. Beta-rowdy has been on hold since admission. Appreciate cardiology consultation and recommendations. Left heart catheterization today, September 22. Permanent cardiac pacemaker placement has been recommended but so far the patient has refused. (2) Elevated troponin: Plan: No overt acute coronary syndrome. Telemetry. Appreciate cardiology consultation and recommendations. Cardiac echo reveals normal ejection fraction with no regional wall motion abnormalities. (3) Acute kidney injury: Plan: Resolved with hydration. Monitor intake and output. Serial labs (4) Hyperlipidemia: Plan: Stable. Continue Lipitor (5) Prediabetes: Plan: ADA diet. Most recent A1c in July was 6.5. Sliding scale insulin coverage if needed Plan Anticipate eventual discharge to home Admission and Anticipated Discharge Date Admission Date: September 20, 2023 Subjective Alert and oriented. Cardiac entry noted. He will undergo elective left heart catheterization for definitive evaluation of coronary arteries. Permanent cardiac pacemaker has been recommended but he still has not made up his mind. He is aware that Dr. José, his usual bladder changer, is not available this week. Review of Systems 2 Review of Systems: Constitutional-no fever or chills ENT-no blurred vision, no double vision, no epistaxis, no sore throat Respiratory-no cough, no wheezing, no shortness of breath Cardiac-occasional feeling of palpitations. No chest pain, no syncope GI-no nausea, vomiting, diarrhea, melena, hematochezia -no urinary retention, no urinary incontinence, no dysuria, no hematuria Musculoskeletal-no joint pain, no muscle tenderness Skin-no bruising, no rashes, no pruritus Neuro-no isolated weakness, no paresthesia, no weakness Psych-no depression, no anxiety Physical Exam 2 Physical Exam: General-alert and oriented x3, no fever, no chills HEENT-head atraumatic and normocephalic, pupils equal and reactive to light, extraocular muscles intact Neck-no lymphadenopathy or thyromegaly, trachea midline Chest-clear to auscultation. No rales, wheezing or rhonchi Cardiac-bradycardic regular rhythm. Normal S1 and S2 Abdomen-normal bowel sounds, no hepatosplenomegaly Extremities-no cyanosis, clubbing, or edema Neuro-cranial nerves II through XII intact, motor and sensory function within normal limits, strength symmetrical, no focal deficits Psych-normal affect, normal mood Results & Data Results & Data Vital Signs (Past 12 Hours) Vital Signs Temp Pulse Resp BP Pulse Ox O2 Del Method 09/23/23 12:43 56 L 14 188/85 H 94 Room Air 09/23/23 11:54 36.5 C 54 L 18 154/85 H 98 Room Air 09/23/23 07:38 36.6 C 50 L 18 157/74 H 100 Room Air 09/23/23 02:40 36.3 C L 37 L 16 151/67 H 99 Room Air Laboratory Results 09/20/23 17:30 09/23/23 06:51 PG Care Time/CCT Total # of Minutes Spent Total Time Spent with Patient: Total time spent is greater than 50% in coordination of care (as documented) at patient's floor/unit and/or counseling patient: Coding Level of Care Code 37395 SUB INP/OBS CARE 3/50MIN Diagnoses Second-degree heart block I44.1 Elevated troponin R79.89 Acute kidney injury N17.9 Hyperlipidemia E78.5 Prediabetes R73.03
--- NOTE | 2023-09-23 13:21 | Cardiac Catheterization ---
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 Cardiac Status Clinical evaluation leading to the procedure CAD Presenation: Positive Stress Test Diagnostic Physicians Name: Faisal Dunn MD Closure Device Recommendations: Medical Therapy and/or Counseling Cardiac Cath Procedure Full Procedure Date September 23, 2023 Pre-Procedure Diagnosis Pre-Procedure Diagnosis: Positive Stress Test AUC Score AUC Score: 7 Post-Procedure Diagnosis Post-Procedure Diagnosis: Normal Coronary Arteries Procedure(s) Performed Procedure(s) Performed: Coronary Angiography and Left Heart Cath Tare Worker Faisal Dunn MD Pipe Maker(s) none Estimated Blood Loss Estimated Blood Loss: 5cc Medication(s) Medication(s): Fentanyl, Heparin, Lidocaine 1%, Nicardipine, Nitroglycerin and Versed Summary of Findings Procedure performed: Left heart catheterization, selective coronary angiography Staff professor of pathology: Faisal Dunn MD Indication: The patient is a 72-year-old gentleman with history of high-degree AV block and frequent ventricular ectopy who presented with elevated cardiac biomarkers. Procedure in detail: The patient was informed of the risks benefits and alternatives to the intended procedure, he understood such and wished to proceed. He was taken to the cardiac catheterization suite in a fasting state. Conscious sedation was administered per protocol and the patient was monitored electrocardiographically throughout today's procedure. The right wrist area was prepped and draped in usual sterile fashion. This area was anesthetized using subcutaneous administration of a lidocaine solution. The right radial artery was then accessed using Seldinger technique, and a arterial sheath was placed at this site over a guidewire. The sheath was used to facilitate passage of the cardiac catheter for coronary angiography and left heart catheterization. Coronary angiogram was then obtained in multiple orthogonal views prior to removal of the catheter. At the conclusion of the procedure the sheath was removed and hemostasis was achieved at the access site using manual pressure. The patient tolerated procedure well, there were no immediate complications. Equipment used: 5 [place] tiger 4 Findings: Coronary angiography Left main: Left main was short but bifurcated into the left anterior descending and left circumflex. No obstructive disease in this vessel Left anterior descending: Left anterior descending was a large vessel which bifurcated close to the apex. It produced several small diagonal branches. It was tortuous in its midportion. There were no obstructive lesions in the LAD Left circumflex: Left circumflex was a codominant vessel. It produced a very high 1st OM branch, a small 2nd OM and a large 3rd OM. No obstructive disease in this distribution Right coronary artery: Right coronary was a dominant vessel. It produced a large PDA and a small PLV branch. No obstructive disease in this vessel. Impression: Right dominant coronary system No obstructive coronary disease Normal left ventricular filling pressure No evidence of aortic stenosis Hemodynamics Rest Ao:: 93/58 mm of mercury Final Ao: 105/58 mm of mercury LV: 106/0 mm of mercury LVEDP 0 mm of mercury Recommendations Recommendations: Medical Therapy and/or Counseling Specimens Specimens: None Radiation Exposure (mGy) 717 Contrast (mls) 45 Procedural Complication(s) None Disposition PCU I attest to the content of the Intraoperative Record and any orders documented therein. Any exceptions are noted below. [facility] Card Cath Procedure Codes Cardiac Catheterization Procedure 1: Cardiovascular Cath Procedures: 00507 Coronaries and LHC (+/-LV) Moderate Sedation Procedure 1: Sedation/Anesthesia: 44690 Mod Sedation by the same physician;Init15 Min Child Age 5 & Up Procedure 2: Sedation/Anesthesia: 56920 Mod Sedation by the same physician; Ea [id number] Minutes PG Care Time/CCT Total # of Minutes Spent Total Time Spent with Patient: Total time spent is greater than 50% in coordination of care (as documented) at patient's floor/unit and/or counseling patient:
--- NOTE | 2023-09-23 13:22 | Post Anesthesia Assessment ---
Date of Service September 23, 2023 Post Sedation Assessment Vital Signs Temp Pulse Pulse Resp BP BP Pulse Ox 09/23/23 12:43 56 L 14 188/85 H 94 09/23/23 11:54 36.5 C 54 L 18 154/85 H 98 09/23/23 07:38 36.6 C 50 L 18 157/74 H 100 09/23/23 02:40 36.3 C L 37 L 16 151/67 H 99 09/22/23 23:05 36.5 C 38 L 16 159/71 H 97 09/22/23 23:00 37 L 09/22/23 19:41 36.6 C 43 L 14 117/71 98 09/22/23 16:18 36.7 C 37 L 18 119/71 98 O2 Del Method 09/23/23 12:43 Room Air 09/23/23 11:54 Room Air 09/23/23 07:38 Room Air 09/23/23 02:40 Room Air 09/22/23 23:05 Room Air 09/22/23 23:00 09/22/23 19:41 Room Air 09/22/23 16:18 Room Air Recovery Score Activity: Moves 4 extremities Respiration: Deep Breath/Cough Circulation: +/-20% PreAnes Value Consciousness: Fully Awake Oxygen Saturation: > 92% On Room Air Discharge Sedation Level of Care: Fast Track Phase II Post Sedation Plan On clinical assessment, the patient appears to have tolerated the sedation without complications. Patient is recovering as anticipated. Patient will continue to be monitored by nursing and may be discharged when sedation discharge criteria are met per below protocol. Upon Completions of procedure up to 15 minutes continue every 5 minute vital signs and the P.A.R. score; then discharge to a Phase I or Fast Track to Phase II per the following guidelines: * Discharge Patient to appropriate Phase II area if PAR is 8 or greater or return to pre- procedure baseline. The post - procedure orders will be as directed. * If PAR score is less than 8 or not return to pre-procedure baseline then patient will follow Phase I monitoring till PAR is reached for Phase II. The Phase I may be done in procedure room or may call to secure a Phase I area. * If naloxone or flumazenil are used for reversal, hold in Phase I for continued monitoring from when last reversal dose was given for a minimum of 60 minutes or longer pending the nurse and/or physician discretion of patient condition before discharge to Phase II. Please call the Sedation Physician to re-evaluate and complete post-note for discharge to Phase II area. Do NOT discharge from procedure sedation or Phase 1 until post- sedation evaluation note is complete by procedure /sedation MD Sedation Discharge Instructions to be given to the patient at discharge to home.
[2023-09-23] MEDS: IODIXANOL (VISIPAQUE) 320 MG/ML 100ML IV ONE (13:57)
[2023-09-24 08:41] LABS: BUN Creatinine Ratio 17.5 (10-20); Calcium 8.1 mg/dl (8.6-10.3); Creatinine Clr Calc Pharmacy 78.6 ml/min; Est GFR (African American) 90.7 ml/min; Est GFR (Non-African American) 78.2 ml/min; Potassium 3.8 mmol/L (3.5-5.1)
--- NOTE | 2023-09-24 10:49 | Hospitalist Progress Note ---
Date of Service September 24, 2023 Assessment & Plan (1) Second-degree heart block: Plan: Present on admission. He now has progressed to third-degree AV block despite beta-rowdy being discontinued on admission. Appreciate cardiology consultation and recommendations. Left heart catheterization completed on September 22 is negative for any critical stenoses. He has agreed to permanent cardiac pacemaker placement today, September 23. (2) Elevated troponin: Plan: No overt acute coronary syndrome. Telemetry. Appreciate cardiology consultation and recommendations. Cardiac echo reveals normal ejection fraction with no regional wall motion abnormalities. (3) Acute kidney injury: Plan: Resolved with hydration. Monitor intake and output. Serial labs (4) Hyperlipidemia: Plan: Stable. Continue Lipitor (5) Prediabetes: Plan: ADA diet. Most recent A1c in July was 6.5. Sliding scale insulin coverage if needed Plan Hopefully home tomorrow, September 24 Admission and Anticipated Discharge Date Admission Date: September 20, 2023 Subjective Alert and oriented. Fortunately, the left heart catheterization done yesterday, September 22, was negative for any critical coronary stenoses. He is agreed to proceed with permanent cardiac pacemaker placement today, September 23. Hopefully he can go home tomorrow, September 24. Appreciate cardiology consultation and recommendations Review of Systems 2 Review of Systems: Constitutional-no fever or chills ENT-no blurred vision, no double vision, no epistaxis, no sore throat Respiratory-no cough, no wheezing, no shortness of breath Cardiac-occasional feeling of palpitations. No chest pain, no syncope GI-no nausea, vomiting, diarrhea, melena, hematochezia -no urinary retention, no urinary incontinence, no dysuria, no hematuria Musculoskeletal-no joint pain, no muscle tenderness Skin-no bruising, no rashes, no pruritus Neuro-no isolated weakness, no paresthesia, no weakness Psych-no depression, no anxiety Physical Exam 2 Physical Exam: General-alert and oriented x3, no fever, no chills HEENT-head atraumatic and normocephalic, pupils equal and reactive to light, extraocular muscles intact Neck-no lymphadenopathy or thyromegaly, trachea midline Chest-clear to auscultation. No rales, wheezing or rhonchi Cardiac-bradycardic regular rhythm. Normal S1 and S2 Abdomen-normal bowel sounds, no hepatosplenomegaly Extremities-no cyanosis, clubbing, or edema Neuro-cranial nerves II through XII intact, motor and sensory function within normal limits, strength symmetrical, no focal deficits Psych-normal affect, normal mood Results & Data Results & Data Vital Signs (Past 12 Hours) Vital Signs Temp Pulse Pulse Resp BP BP Pulse Ox 09/24/23 07:25 36.5 C 36 L 18 120/71 99 09/24/23 07:19 35 L 09/24/23 03:19 36.5 C 36 L 18 115/67 96 09/23/23 23:00 36 L O2 Del Method 09/24/23 07:25 Room Air 09/24/23 07:19 09/24/23 03:19 Room Air 09/23/23 23:00 Laboratory Results 09/20/23 17:30 09/24/23 07:38 PG Care Time/CCT Total # of Minutes Spent Total Time Spent with Patient: Total time spent is greater than 50% in coordination of care (as documented) at patient's floor/unit and/or counseling patient: Coding Level of Care Code 77022 SUB INP/OBS CARE 2/35MIN Diagnoses Second-degree heart block I44.1 Elevated troponin R79.89 Acute kidney injury N17.9 Hyperlipidemia E78.5 Prediabetes R73.03
--- NOTE | 2023-09-24 12:41 | Electrocardiogram Report ---
Test Reason : Blood Pressure : / mmHG Vent. Rate : 041 BPM Atrial Rate : 041 BPM P-R Int : 440 ms QRS Dur : 112 ms QT Int : 432 ms P-R-T Axes : 081 016 109 degrees QTc Int : 356 ms Sinus rhythm with 2:1 AV block Abnormal ECG When compared with ECG of 20-SEP-2023 17:18, Premature atrial complexes are now Present T wave amplitude has decreased in Anterior leads Confirmed by Faisal Dunn ([id number]) on 09/24/2023 12:41:33 PM Referred By: REFERRED SELF Confirmed By:Mathew Dunn
--- NOTE | 2023-09-24 12:42 | Electrocardiogram Report ---
Test Reason : Blood Pressure : / mmHG Vent. Rate : 039 BPM Atrial Rate : 034 BPM P-R Int : 000 ms QRS Dur : 104 ms QT Int : 470 ms P-R-T Axes : 072 025 116 degrees QTc Int : 378 ms Sinus rhythm with complete heart block and junctional escape rhythm Abnormal ECG When compared with ECG of 20-SEP-2023 17:47, Inverted T waves have replaced nonspecific T wave abnormality in Lateral leads Confirmed by Faisal Dunn ([id number]) on 09/24/2023 12:42:08 PM Referred By: REFERRED SELF Confirmed By:Mathew Dunn
--- NOTE | 2023-09-24 14:43 | Pre Anesthesia Assessment ---
Date of Service September 24, 2023 Pre Sedation Assessment Vital Signs Temp Pulse Pulse Resp BP BP Pulse Ox 09/24/23 11:35 36.6 C 38 L 18 145/86 H 96 09/24/23 07:25 36.5 C 36 L 18 120/71 99 09/24/23 07:19 35 L 09/24/23 03:19 36.5 C 36 L 18 115/67 96 09/23/23 23:00 36 L 09/23/23 22:32 36.5 C 36 L 18 124/70 95 09/23/23 19:36 36.6 C 39 L 18 144/72 H 99 09/23/23 18:06 59 L 123/70 97 09/23/23 17:45 50 L 99/65 L 09/23/23 17:37 50 L 138/70 09/23/23 16:37 38 L 117/74 09/23/23 16:00 39 L 133/70 98 09/23/23 15:55 34 L 09/23/23 15:30 36.1 C L 38 L 16 147/72 H 99 09/23/23 15:13 36.3 C L 48 L 18 147/72 H 98 O2 Del Method 09/24/23 11:35 Room Air 09/24/23 07:25 Room Air 09/24/23 07:19 09/24/23 03:19 Room Air 09/23/23 23:00 09/23/23 22:32 Room Air 09/23/23 19:36 Room Air 09/23/23 18:06 Room Air 09/23/23 17:45 09/23/23 17:37 09/23/23 16:37 09/23/23 16:00 Room Air 09/23/23 15:55 09/23/23 15:30 Room Air 09/23/23 15:13 Room Air Cardiovascular + bradycardic Respiratory + respiratory effort normal Pre-Sedation Airway Assessment Smoking Status: Never smoker Hx Sleep Apnea: No Hx Difficult Intubation: No Short, Thick Neck: No Thyromental Distance: > or= 3.5 Finger Breadths Oral Cavity: + WNL Mallampati Class: II ASA: ASA2 NPO Status Date of Last Intake of Fluids: 09/22/23 Time of Last Intake of Fluids: 20:00 Date of Last Intake of Solid Food: 09/22/23 Time of Last Intake of Solid Foods: 20:00 Procedure Planning Contraindications for Sedation: none Current Medications Reviewed: Yes Notes The planned sedation has been discussed with the patient. Informed Consent was obtained. I have identified the patient, determined the appropriateness of sedation and have assessed the patient immediately prior to the procedure. All medicine(s) and interventions are by my order.
[2023-09-24] MEDS: BUPIVACAINE 0.25% PF 30 ML VIAL ONE (15:26)
[2023-09-24] MEDS: LIDOCAINE 1% LOCAL 20 ML VIAL ONE (15:27)
[2023-09-24] MEDS: WATER, STERILE FOR INJ 10 ML VIAL ONE (15:27)
[2023-09-24] MEDS: VANCOMYCIN HCL 1000MG/20ML VIAL ONE (15:27)
[2023-09-24] MEDS: ceFAZolin 330 MG/ML 1 GM VIAL ONE (15:27)
[2023-09-24] MEDS: fentaNYL citrate PF 100 MCG/2 ML VIAL ONE (16:03)
[2023-09-24] MEDS: MIDAZOLAM HCL 5 MG/ML 1 ML VIAL ONE (16:04)
--- NOTE | 2023-09-24 16:10 | Post Anesthesia Assessment ---
Date of Service September 24, 2023 Post Sedation Assessment Vital Signs Temp Pulse Pulse Resp BP BP Pulse Ox 09/24/23 15:36 34 L 09/24/23 14:47 36.5 C 34 L 14 165/76 H 96 09/24/23 11:35 36.6 C 38 L 18 145/86 H 96 09/24/23 07:25 36.5 C 36 L 18 120/71 99 09/24/23 07:19 35 L 09/24/23 03:19 36.5 C 36 L 18 115/67 96 09/23/23 23:00 36 L 09/23/23 22:32 36.5 C 36 L 18 124/70 95 09/23/23 19:36 36.6 C 39 L 18 144/72 H 99 09/23/23 18:06 59 L 123/70 97 09/23/23 17:45 50 L 99/65 L 09/23/23 17:37 50 L 138/70 09/23/23 16:37 38 L 117/74 O2 Del Method 09/24/23 15:36 09/24/23 14:47 Room Air 09/24/23 11:35 Room Air 09/24/23 07:25 Room Air 09/24/23 07:19 09/24/23 03:19 Room Air 09/23/23 23:00 09/23/23 22:32 Room Air 09/23/23 19:36 Room Air 09/23/23 18:06 Room Air 09/23/23 17:45 09/23/23 17:37 09/23/23 16:37 Recovery Score Activity: Moves 4 extremities Respiration: Deep Breath/Cough Circulation: +/-20% PreAnes Value Consciousness: Fully Awake Oxygen Saturation: > 92% On Room Air Post Anesthesia Score: 10 Discharge Sedation Level of Care: Fast Track Phase II Post Sedation Plan On clinical assessment, the patient appears to have tolerated the sedation without complications. Patient is recovering as anticipated. Patient will continue to be monitored by nursing and may be discharged when sedation discharge criteria are met per below protocol. Upon Completions of procedure up to 15 minutes continue every 5 minute vital signs and the P.A.R. score; then discharge to a Phase I or Fast Track to Phase II per the following guidelines: * Discharge Patient to appropriate Phase II area if PAR is 8 or greater or re turn to pre- procedure baseline. The post - procedure orders will be as directed. * If PAR score is less than 8 or not return to pre-procedure baseline then patient will follow Phase I monitoring till PAR is reached for Phase II. The Phase I may be done in procedure room or may call to secure a Phase I area. * If naloxone or flumazenil are used for reversal, hold in Phase I for continued monitoring from when last reversal dose was given for a minimum of 60 minutes or longer pending the nurse and/or physician discretion of patient condition before discharge to Phase II. Please call the Sedation Physician to re-evaluate and complete post-note for discharge to Phase II area. Do NOT discharge from procedure sedation or Phase 1 until post- sedation evaluation note is complete by procedure /sedation MD Sedation Discharge Instructions to be given to the patient at discharge to home.
[2023-09-24] MEDS ORDERED: oxyCODONE HCL IR 5 MG TAB (IMMEDIATE RELEASE) PO PRN (16:11)
--- NOTE | 2023-09-24 16:11 | Electrophysiology Report ---
Date of Service September 24, 2023 Electrophysiology Procedure Electrophysiology Procedure Report Procedure performed: Implantation of dual-chamber permanent pacemaker with left bundle pacing lead Staff admissions director: Faisal Dunn MD Indication: The patient is 72-year-old gentleman with a history of high-degree AV block and symptomatic bradycardia. The subcu good candidate for permanent pacemaker due to symptomatic nonreversible AV node dysfunction. Dual-chamber device was selected as he is currently in sinus rhythm which to maintain AV synchrony. Procedure in detail: The patient was informed of the risks benefits and alternatives to the intended procedure and he wished to proceed. he was taken to the electrophysiology suite in a fasting state. A preoperative antibiotic had been administered. The patient was monitored electrocardiographically throughout today's procedure and conscious sedation was administered per protocol. The left upper pectoral area is prepped and draped in usual sterile fashion. This area was anesthetized using subcutaneous administration of a xylocaine solution. An incision was made at this site and carried down to the prepectoralis fascia using sharp dissection. Electrocautery was also employed for dissection as well as for hemostasis. A device pocket was fashioned tissues above the pectoralis muscle. Subsequent to this maneuver the left axillary vein was accessed using modified Seldinger technique. A sheath was placed over guidewire and used facilitate passage of the guiding catheter for mapping of the interventricular septum. Once appropriate location was identified a pacing lead was advanced into the interventricular septum into the appropriate electrophysiology characteristics were obtained. The guiding catheter was subsequently removed in the proximal portion lead was then sutured to prepectoralis fascia using nonabsorbable suture. A sheath was placed over the remaining guidewire and used facilitate passage of pacing lead to the right atrium under fluoroscopic guidance. Adequate sensing threshold parameters were obtained prior to active fixation of this lead to the endocardial surface. Proximal portion lead was then sutured to prepectoralis fascia using nonabsorbable suture. The proximal portion leads were then sutured the prepectoral fascia using nonabsorbable suture. The device pocket was irrigated with antibiotic solution. The leads were then attached to the device. The device and leads were then placed in the pocket and pocket was closed in 3 layers of absorbable suture. Steri-Strips and sterile dressing were applied. The device was tested noninvasively prior to conclusion the procedure. The patient tolerated procedure well there no immediate complications. Equipment used: New pulse generator: Weaver Needle [employer]oom [employer]. Model number: [id number] serial number [id number] Right atrial lead: Weaver Needle Loom [employer]tronic. Model number: [id number] serial number [id number] Right ventricular lead: Weaver Needle Loom [employer]onic. Model number: 3830 serial number [id number] Measured data: Right atrial lead: P waves measured 1.5 mV. Pacing threshold 0.75 volts at 0.4 milliseconds with a pacing impedance of 741 Ohms Right ventricular lead: R-waves measured 19.4 mV. Pacing threshold 0.5 volts at 0.4 milliseconds with a pacing impedance of 969 Ohms Impression: Successful implantation of dual-chamber permanent pacemaker with left bundle pacing lead [facility] Electrophysiology codes Pacing Procedure 1: Pacin Insert/Replace Pacer A & V PG Moderate Sedation Codes Moderate Sedation Codes Procedure 1: Sedation/Anesthesia: 89167 Mod Sedation by the same physician;Init15 Min Child Age 5 & Up Procedure 2: Sedation/Anesthesia: 68505 Mod Sedation by the same physician; Ea [id number] Minutes
[2023-09-24] MEDS: ACETAMINOPHEN 325 MG TAB PO PRN (21:41)
[2023-09-25 08:01] LABS: BUN Creatinine Ratio 14.9 (10-20); Calcium 8.4 mg/dl (8.6-10.3); Creatinine Clr Calc Pharmacy 76.1 ml/min; Est GFR (African American) 86.3 ml/min; Est GFR (Non-African American) 74.5 ml/min; Potassium 3.8 mmol/L (3.5-5.1)
[2023-09-25 09:48] LABS: Basophils # (auto) 0.02 K/uL (0.00-0.20); Basophils % (auto) 0.4 %; Eosinophils # (auto) 0.12 K/uL (0.00-0.50); Eosinophils % (auto) 2.3 %; Hematocrit (blood only) 40.7 % (42.0-52.0); Hemoglobin 13.3 g/dl (14.0-18.0); Immature Granulocytes # (auto) 0.01 K/uL (0.01-0.20); Immature Granulocytes % (auto) 0.2 %; Lymphocytes # (auto) 1.56 K/uL (1.20-3.40); Lymphocytes % (auto) 29.8 %; Mean Corpuscular Hemoglobin 27.7 pg (25.0-34.0); Mean Corpuscular Hgb Conc 32.7 g/dL (32.0-36.0); Mean Corpuscular Volume 84.8 fL (80.0-100.0); Mean Platelet Volume 12.5 fL (9.4-12.4); Monocytes % (auto) 9.5 %; Neutrophils # (auto) 3.03 K/uL (1.40-6.50); Neutrophils % (auto) 57.8 %; Platelet Count 121 K/uL (130-400); RDW Standard Deviation 40.6 fL (36.4-46.3); White Blood Count 5.24 K/ul (4.8-10.8)
[2023-09-25] MEDS: BISOPROLOL FUMARATE 5 MG TAB PO SCH (10:01)
--- NOTE | 2023-09-25 10:44 | XRay Report ---
TWO VIEW CHEST CLINICAL HISTORY: Pacemaker implantation. FINDINGS: PA and lateral chest radiographs are compared to study dated 09/20/2023. A 2-lead cardiac pac emaker has been implanted and partially obscures the left upper chest. Leads project over the right a trial appendage and the right ventricle. The heart is mildly enlarged. The pulmonary vasculature is n oncongested. The lungs and pleural spaces are clear. There is no pneumothorax. The skeletal structur es are osteopenic. The bony thorax appears intact. IMPRESSION: 1. A 2-lead cardiac pacemaker has been implanted as above. No pneumothorax is identified post procedu re. 2. Cardiomegaly without radiographic evidence of congestive failure. 3. No airspace consolidation or pleural effusion is identified. ACT 112: Negative or not required by law. Electronically signed by: Addy Burkett M.D. 09/25/2023 10:43 AM
--- NOTE | 2023-09-25 11:50 | Discharge Summary ---
Date of Service September 25, 2023 Admission HPI Per Admitting Provider This is a 72-year-old -Citizen Of [place] male who presented with the above chief complaint. The patient is an avid biker. He recently did a 12 mile bike ride 1 week ago. Since then, he has noticed increased fatigue lately. He does not feel like going for walks anymore which he normally does. He has also noticed some pressure sensation in his head. Because of his symptoms, he went to urgent care today and he was sent to the ER for concerns of possible atrial fibrillation. But he was noted to have a second-degree heart block for which admission has been requested. The patient denies dizziness, chest pain, shortness of breath, loss of consciousness, blurred vision, confusion. His only complaints are easy fatigability and a pressure sensation in his head. He has done the bike ride 1 week ago but he is not a very outdoorsy kind of person. Does not think that he has had any tick bites lately. Past medical history 1. Benign essential hypertension, on bisoprolol 2.5 mg, amlodipine, triamterene/hydrochlorothiazide 2. History of PVCs. On bisoprolol. 3. LVH, due to hypertensive heart disease 4. Hyperlipidemia. On Lipitor. 5. First-degree heart block Principal Diagnosis Second and third degree AV block with bradycardia Discharge Exam General-alert and oriented x3, no fever, no chills HEENT-head atraumatic and normocephalic, pupils equal and reactive to light, extraocular muscles intact Neck-no lymphadenopathy or thyromegaly, trachea midline Chest-clear to auscultation. No rales, wheezing or rhonchi Cardiac-regular rhythm, normal rate. Normal S1 and S2 Abdomen-normal bowel sounds, no hepatosplenomegaly Extremities-no cyanosis, clubbing, or edema Skinpacemaker insertion site is clean and dry without hematoma Neuro-cranial nerves II through XII intact, motor and sensory function within normal limits, strength symmetrical, no focal deficits Psych-normal affect, normal mood Discharge Data Allergies Allergy/AdvReac Type Severity Reaction Status Date / Time No Known Allergies Allergy Verified 07/28/23 09:14 Consultations 09/20/23 18:16 ED Decision to Admit Stat 09/20/23 21:23 Consult Cardiology Routine Procedures Performed Operation Date: 09/24/23 14:00 Actual Procedures p Pacer with A/V Leads (Dual) - Faisal Dunn MD Ordered Studies 09/23/23 11:38 CL Cath Imgs for PACS use only Routine 09/24/23 07:30 EP Lab Images for PACS ONCE Hospital Course (1) Second-degree heart block: Present on admission. Progressed to third-degree AV block despite beta-rowdy being discontinued on admission. Appreciate cardiology consultation and recommendations. Left heart catheterization completed on September 22 is negative for any critical stenoses. Permanent cardiac pacemaker was placed on September 23. He had a transient rapid heart rate today, September 24, and his bisoprolol has been restarted. Hopefully he can go home today, September 24. (2) Elevated troponin: No overt acute coronary syndrome. Telemetry. Appreciate cardiology consultation and recommendations. Cardiac echo reveals normal ejection fraction with no regional wall motion abnormalities. (3) Acute kidney injury: Resolved with hydration. Monitor intake and output. Serial labs (4) Hyperlipidemia: Stable. Continue Lipitor (5) Prediabetes: ADA diet. Most recent A1c in July was 6.5. Sliding scale insulin coverage if needed Plan Hopefully home later today, September 24 Total Time Total Time Spent Total Time Spent (In Minutes): 45-minute Discharge Plan Discharge Items Patient Disposition: Home - Self-Care Reason For Visit: FATIGUE Discharge Diagnosis: Second and third-degree AV block with bradycardia Activity: Resume your previous activity Activity Comment: Avoid reaching overhead and using the left arm until cleared by cardiology Non-emergency contact: Primary Care Provider and [employer] Call non-emergency contact if: your symptoms worsen Follow-up/Referrals: Miroslava Carlson MD [Primary Care Provider] - Diet: Carb Consistent or DM2 and Heart Healthy Addtl Attending Provider Instructions: Home medications remain the same. Follow-up with cardiology as instructed Pending Studies at Discharge: No Stand-Alone Forms: [employer], Smoking Cessation Medications and DC Order Prescriptions: Continued amlodipine 10 mg tablet 10 mg PO QAM Qty: 90 3RF bisoprolol fumarate 5 mg tablet 2.5 mg PO DAILY 90 Days Qty: 45 3RF atorvastatin 80 mg tablet 80 mg PO QPM Qty: 90 3RF triamterene-hydrochlorothiazid 37.5-25 mg capsule 1 cap PO QAM Qty: 90 3RF (DME) FreeStyle Deb 3 Sensor Device See Rx Instructions .Route Qty: 1 2RF Rx Instructions: As directed zolpidem 10 mg tablet 5 - 10 mg PO HS PRN (Reason: Insomnia) Qty: 90 1RF sildenafil 100 mg tablet 100 mg PO DAILY PRN (Reason: Sexual Activity) Qty: 10 2RF Rx Instructions: Administer 30 minutes to 4 hours before activity aspirin [Adult Low Dose Aspirin] 81 mg tablet,delayed release (DR/EC) 81 mg PO QAM Tums 300 mg (750 mg) Tablet,Chewable 300 mg PO TID PRN (Reason: gerd) Discharge Orders: Discharge Order (Routine); Ordered 09/25/23 Ordered By: Levy Parisi Admission Data Admit Date/Time: 09/20/23 19:26 Attending Provider: Levy Parisi Admit Provider: Rosanna Rodríguez Primary Care Provider: Miroslava Carlson Other Providers: Rosanna Rodríguez; Al Gallardo Coding Level of Care Code 18309 INP/OBS DISCH >30 MIN Diagnoses Second-degree heart block I44.1 Elevated troponin R79.89 Acute kidney injury N17.9 Hyperlipidemia E78.5 Prediabetes R73.03
--- NOTE | 2023-09-25 13:34 | Electrocardiogram Report ---
Test Reason : Blood Pressure : / mmHG Vent. Rate : 065 BPM Atrial Rate : 065 BPM P-R Int : 156 ms QRS Dur : 134 ms QT Int : 430 ms P-R-T Axes : 054 136 141 degrees QTc Int : 447 ms Atrial-sensed ventricular-paced rhythm Abnormal ECG When compared with ECG of 21-SEP-2023 07:11, Previous ECG has undetermined rhythm, needs review Confirmed by Faisal Dunn ([id number]) on 09/25/2023 1:33:55 PM Referred By: REFERRED SELF Confirmed By:Mathew Dunn
== END 2023-09-25 15:28 | disposition home or self-care (01) | DRG 243 ==
LOC: SUATTDRO → ED 17:05 → 2S 19:26 → SUATTDRO 19:26 → 2S 20:48